=== PATIENT | male | born 1945 | race Hispanic/Latino ===

== ENCOUNTER → 2017-03-18 | Outpatient (CLI) | payer MEDICARE, OTHER ==
[~2017-03-18] MED LIST: ATORVASTATIN CA20 MG PO; DEXAMETHASONE4 MG PO; ESIDRIX25 MG PO; FAMOTIDINE20 MG PO; FENTANYL1 EAC1; GABAPENTIN300 MG PO; HYDROMORPHONE HC4 MG PO; LACTULOSE20 GM/30 M PO; LISINOPRIL10 MG PO; MUCINEX DM ER1 EACH PO; NICODERM CQ1 EAC2 TOP; NIFEDIPINE ER30 M1 PO; PROAIR HFA INH8.5 GM; SIMVASTATIN20 MG PO; VENTOLIN HFA18 GM IH; ZOFRAN ODT4 MG PO
--- NOTE | 2017-03-18 18:54 | Diagnostic Imaging Report ---
PROCEDURE:CT CHEST WITHOUT CONTRAST COMPARISON:Chest 01/02/17. INDICATIONS:LUNG CANCER, SHORTNESS OF BREATH TECHNIQUE: Axial CT images of the chest were obtained from the lung apices through the adrenal glands. Coronal and sagittal reformations were made available for review. No intravenous contrast was administered. RADIATION DOSE: Total DLP: 490.5 mGy*cm Estimated effective dose: (DLP x 0.014 x size factor) mSv FINDINGS: Lungs: Right lung: New patchy groundglass airspace opacities have developed. * Upper lobe: 3 areas of airspace disease have developed measuring up to 2 cm. * Patchy air space opacity has developed in the lateral segment of the middle lobe, inferior aspect. * Patchy groundglass opacities have developed in the posterior basal segment of the lower lobe in what appears to be a "tree in bud pattern". 7 mm nodule in the middle lobe is stable. Nodules in the posterior lower lobe (images 63 and 65 measuring up to 8 mm and are stable. Pleural based nodule the middle lobe (image 84) measures 4 mm and is stable. Tiny nodules along the major fissure (image 64) are stable. There is mild bronchial wall thickening in the areas of groundglass attenuation in the lower lobe. Left lung: The primary tumor is in the upper lobe, posterior aspect, with occlusion of the supplying bronchus. Two areas of cavitation or ectatic bronchi are present measuring up to 12 mm. There is an increasing atelectasis surrounding the tumor as well as diffuse groundglass attenuation along the anterior aspect, similar to that found in the right lung. New patchy areas of groundglass airspace opacities have developed right lower lobe. These measure up to 3.5 x 4.0 cm. Some have a "tree in bud configuration". Solid nodule has developed in the lower lobe measuring 9 mm (image 76). There is bronchial wall thickening in the lower lobe. Portions of the anterior basal segment bronchus are chronically narrowed due to tumor. Pleura:No pneumothorax. Posterior layering left pleural effusion measures 18 mm and is smaller. Eventration of the left diaphragm has developed. Airways: The trachea and right and left bronchi are patent. The left upper lobe bronchus is circumferentially narrowed, similar to previous exam. The bronchus supplying the segment of the left upper lobe affected by tumor remains occluded. There is mild narrowing of the proximal left lower lobe bronchus by tumor. This is also stable. Lymph nodes: No enlarged axillary or subclavicular lymph nodes. Metastatic lymphadenopathy is re-demonstrated with prevascular lymph nodes measuring up to 2.4 x 2.4 cm. Right paratracheal lymph nodes measure up to 2.3 x 2.2 cm (previously, 2.0 x 1.0 cm). Subcarinal lymph node measures 2.2 x 2.4 cm (previously, 2.0 x 2.5 cm). Heart \\T\\ Mediastinum:A pericardial effusion measures 8 mm. Coronary artery calcifications are present. The esophagus is collapsed. MediPort catheter terminates in the SVC. Upper abdomen:Splenic subcapsular fluid collection measures 18.6 x 11.6 by approximately 13 cm. It is incompletely imaged. Low attenuating mass the spleen measures 7.4 x 8.6 cm corresponds to tumor. There is mass effect on the stomach as a result. The visualized portions of the liver and adrenal glands demonstrate no evidence of mass. The upper pole the right kidney is unremarkable Musculoskeletal:There are no lytic or blastic lesions CONCLUSION: 1. New multifocal groundglass opacities in each lung, including surrounding the left upper lobe tumor; some of these opacities have the appearance of an infectious/inflammatory process. However, these could also represent hemorrhage, response to chemotherapy, or pulmonary infarcts. New deposits of metastases cannot be excluded. The solid pulmonary nodules in the right lung appear stable. A new solid nodule in the left lower lobe could be a new metastatic lesion. 2. Progression of mediastinal lymphadenopathy. This could be secondary to infection or tumor. 3. Large subcapsular splenic fluid collection consistent with remote hemorrhage. The size is underestimated due to CT technique. This causes mass effect on the stomach and eventration of the left diaphragm. Metastatic mass in the spleen is similar in appearance. Findings discussed with Dr. Baird at the time the study was performed. Dictated by: Lorena Carbajal M.D. on 03/18/2017 at 19:03 Electronically approved by: Lorena Carbajal M.D. on 03/18/2017 at 19:03
== END ==
LOC: CT 17:29
PROVIDERS: ATTEND Internal Medicine Cardiovascular Disease
DX: C34.90 Malignant neoplasm of unspecified part of unspecified bronchus or lung (principal); R06.00 Dyspnea, unspecified; G47.19 Other hypersomnia; F32.9 Major depressive disorder, single episode, unspecified; F17.200 Nicotine dependence, unspecified, uncomplicated
CPT/HCPCS: 71250

== ENCOUNTER 2017-03-19 09:24 | Inpatient (IN) | payer MEDICARE, OTHER ==
[~2017-03-19] VITALS: Ht 180.3 cm; Wt 90.0 kg
[~2017-03-19 09:24] MED LIST changes: -DEXAMETHASONE4 MG PO; -FENTANYL1 EAC1; -GABAPENTIN300 MG PO; -HYDROMORPHONE HC4 MG PO; -LACTULOSE20 GM/30 M PO; -PROAIR HFA INH8.5 GM; -ZOFRAN ODT4 MG PO
[2017-03-19] MEDS ORDERED: SODIUM CHLORIDE 0.9% 1000ML 1,000 ML IV STA (09:43)
[2017-03-19] MEDS ORDERED: ZOFRAN ODT4 MG PO (09:50)
[2017-03-19] MEDS ORDERED: FENTANYL1 EAC1 (09:50)
[2017-03-19] MEDS ORDERED: GABAPENTIN300 MG PO (09:50)
[2017-03-19] MEDS ORDERED: HYDROMORPHONE HC4 MG PO (09:50)
[2017-03-19] MEDS ORDERED: PROAIR HFA INH8.5 GM (09:50)
[2017-03-19] MEDS ORDERED: DEXAMETHASONE4 MG PO (09:50)
[2017-03-19] MEDS ORDERED: LACTULOSE20 GM/30 M PO (09:50)
[2017-03-19] MEDS ORDERED: IBUPROFEN 600 MG TAB PO STA (09:54)
[2017-03-19 10:12] LABS: BASOPHILS % 1.8 % (0.0-1.0); HEMATOCRIT 32.5 % (38.2-49.6); HEMOGLOBIN 10.8 g/dL (14.0-18.0); LYMPHOCYTES # (AUTO) 0.2 (1.0-3.2); LYMPHOCYTES % 21.4 % (18.0-39.1); MEAN CORPUSCULAR HEMOGLOBIN 28.6 pg (28-32); MEAN CORPUSCULAR HGB CONC 33.2 g/dL (31-35); MONOCYTES # (AUTO) 0.1 (0.2-0.8); MONOCYTES % 4.5 % (4.4-11.3); NEUTROPHILS # (AUTO) 0.8 (2.1-6.9); NEUTROPHILS % 71.4 % (38.7-80.0); PLATELET COUNT 75 x10e3/uL (140-360); RED BLOOD COUNT 3.78 x10e6/uL (4.3-5.7); RED CELL DISTRIBUTION WIDTH 20.8 % (11.7-14.4)
[2017-03-19] MEDS ORDERED: HYDROMORPHONE 1MG/1ML INJ IV STA (10:12)
[2017-03-19] MEDS ORDERED: ONDANSETRON HCL INJ 2 MG/ML VIAL IV STA (10:12)
--- NOTE | 2017-03-19 10:22 | Diagnostic Imaging Report ---
Portable chest x-ray CPT code 10918 INDICATION: Lung cancer, mid back pain, cough COMPARISON: CT chest performed 03/18/2017 is not available for comparison. Comparison is made to a CT chest performed 01/02/2017 FINDINGS: Frontal view of the chest obtained at 0752 hours. The cardiac silhouette is partially obscured due to large left upper lobe mass. There is increasing consolidation surrounding the tumor compared to previous exam. MediPort catheter terminates in the SVC. The groundglass airspace opacities identified in the right lung on the most recent CT are not visualized by x-ray The pulmonary vascular markings in the aerated lung are normal. The left diaphragm is obscured. The right costophrenic angle is sharp. No pneumothorax. The osseous structures are intact and normal in morphology. IMPRESSION: 1. Multifocal airspace opacities identified in the right lung on CT of the chest performed 03/18/2017 are not visible by x-ray. 2. Worsening consolidation surrounding the left upper lobe tumor. This could be due to atelectasis or pneumonia in the appropriate clinical setting. Signed by: Dr. Lorena Carbajal MD on 03/19/2017 10:18 AM
[2017-03-19 10:33] LABS: PROTHROMBIN TIME 13.7 seconds (11.9-14.5)
[2017-03-19 10:34] LABS: PARTIAL THROMBOPLASTIN TIME 33.4 seconds (23.8-35.5)
[2017-03-19 10:43] LABS: ALANINE AMINOTRANSFERASE 28 IU/L (0-55); ALBUMIN 1.8 g/dL (3.5-5.0); ALBUMIN/GLOBULIN RATIO 0.4 (0.8-2.0); ALKALINE PHOSPHATASE 110 IU/L (40-150); ANION GAP 16.7 mmol/L (8-16); BLOOD UREA NITROGEN 23 mg/dL (7-26); BUN/CREATININE RATIO 30 (6-25); CALCIUM 11.6 mg/dL (8.4-10.2); CARBON DIOXIDE 21 mmol/L (22-29); CHLORIDE 97 mmol/L (98-107); CREATININE, SERUM 0.76 mg/dL (0.72-1.25); EST GLOMERULAR FILTRATION RATE > 60 ML/MIN (60-); GLUCOSE 163 mg/dL (74-118); POTASSIUM 4.7 mmol/L (3.5-5.1); SODIUM 130 mmol/L (136-145)
[2017-03-19] MEDS ORDERED: HYDROMORPHONE 2MG/ML INJ IV ONE (11:00)
[2017-03-19] MEDS ORDERED: SODIUM CHLORIDE 0.9% 1000ML 1,000 ML IV SCH (11:38)
[2017-03-19] MEDS ORDERED: VANCOMYCIN HCL 1GM/NS 250 ML BAG IV SCH (11:45)
[2017-03-19] MEDS: VANCOMYCIN 1GM/NS 250 ML 250 ML IV SCH (12:26)
[2017-03-19] MEDS: IPRATROPIUM BROMIDE 0.02% 2.5 ML NEB NEB SCH ×2 (13:50→19:15)
[2017-03-19 13:57] LABS: BAND NEUTROPHILS % (MANUAL) 12 %; LYMPHOCYTES % (MANUAL) 32 % (19-48); METAMYELOCYTES % (MANUAL) 18 % (0-0); MONOCYTES % (MANUAL) 18 % (3.4-9.0); MYELOCYTES % (MANUAL) 8 % (0-0); NEUTROPHILS % (MANUAL) 10 % (40-74); NUCLEATED RED BLOOD CELLS 4; PROMYELOCYTES % (MANUAL) 2 % (0-0)
[2017-03-19 13:59] LABS: PLATELET MORPHOLOGY COMMENT NORMAL
[2017-03-19 14:00] LABS: PLATELET ESTIMATE MODERATELY DECREASED; RBC MORPHOLOGY COMMENT ABNORMAL
[2017-03-19 14:02] LABS: POIKILOCYTOSIS MODERATE
[2017-03-19 14:08] LABS: ANISOCYTOSIS MODERATE
[2017-03-19 14:09] LABS: ACANTHOCYTES FEW; BURR CELLS SLIGHT
[2017-03-19 14:11] LABS: TEAR DROP CELLS FEW
[2017-03-19] MEDS ORDERED: ALBUTEROL SULF 0.083% NEB SOLN 3 ML NEB NEB SCH (15:00)
[2017-03-19] MEDS: LEVOFLOXACIN 750MG/D5W 150ML 150 ML IV SCH (16:00)
[2017-03-19] MEDS: SODIUM CHLORIDE 0.9% 1000ML 1,000 ML IV SCH (16:00)
[2017-03-19] MEDS: FENTANYL 50 MCG/HR PATCH TD SCH (16:00)
[2017-03-19 16:03] VITALS: BP 99/60
[2017-03-19 16:09] VITALS: BP 102/60
[2017-03-19] MEDS: LACTULOSE SYRUP 20 GM/30 ML UDC PO SCH (18:00)
[2017-03-19 18:52] VITALS: BP 102/60
[2017-03-19] MEDS: ALBUTEROL/IPRATROPIUM 3 ML NEB NEB SCH ×2 (19:15→23:15)
[2017-03-19 20:34] VITALS: BP 104/63
[2017-03-19 21:00] VITALS: BP 104/63
[2017-03-19] MEDS: SIMVASTATIN 20 MG TAB PO SCH (21:32)
[2017-03-19] MEDS: ONDANSETRON HCL 4 MG ORAL DISINTEGRATING TAB PO SCH (21:32)
[2017-03-19] MEDS: DEXAMETHASONE 4 MG TAB PO SCH (21:33)
[2017-03-19] MEDS: HYDROCODONE/APAP 10MG-325MG TAB PO PRN (21:52)
[2017-03-20 00:40] VITALS: BP 116/63
[2017-03-20] MEDS: IPRATROPIUM BROMIDE 0.02% 2.5 ML NEB NEB SCH ×4 (01:10→19:00)
[2017-03-20] MEDS: HYDROCODONE/APAP 10MG-325MG TAB PO PRN ×3 (03:04→20:21)
[2017-03-20] MEDS: SODIUM CHLORIDE 0.9% 1000ML 1,000 ML IV SCH ×2 (03:04→16:23)
[2017-03-20] MEDS: ALBUTEROL/IPRATROPIUM 3 ML NEB NEB SCH ×5 (03:10→20:00)
[2017-03-20 03:13] LABS: CLARITY,URINE CLEAR (CLEAR); KETONES,URINE NEGATIVE (NEGATIVE); LEUKOCYTE ESTERASE ,URINE NEGATIVE (NEGATIVE); NITRITE,URINE NEGATIVE (NEGATIVE); URINE UROBILINOGEN 4 mg/dL (0.2 - 1)
[2017-03-20 03:22] LABS: BILIRUBIN,URINE 1+ (NEGATIVE); COLOR,URINE ORANGE (YELLOW); PROTEIN,URINE DIPSTICK 1+ (NEGATIVE)
[2017-03-20 03:33] LABS: BACTERIA,URINE MODERATE /HPF; EPITHELIAL CELLS,URINE FEW /LPF; MUCUS,URINE MODERATE (RARE)
[2017-03-20 05:31] VITALS: BP 120/64
--- NOTE | 2017-03-20 05:49 | History and Physical ---
PRIMARY ONCOLOGIST: Dr. Kowalski. is a pleasant 71-year-old gentleman with lung cancer. Patient under recent assessment and came to the hospital and was asked to be placed under my care here. Patient with squamous cell, poorly differentiated carcinoma diagnosed in December 2016. Patient had bronchoscopy at that time showing multilobar involvement. Subsequent MRI brain was reported to be normal, although I did not see the report. PET CT reportedly showed lymph node, spleen, and lung involvement, although I did not see the report. Patient has been having chemotherapy for 3 sessions now. Patient's last chemotherapy was 1 week ago. Patient has been having increasing pain and increasing lethargy and sleepiness. Patient is on fentanyl patch 50 mcg per hour. He stopped using Dilaudid as it was not being used with good efficacy with the 4-mg dosing that he was on. Patient furthermore cites some depression as well. Patient, however, was having increasing shortness of breath and pain. He had CT chest done which shows small patchy infiltrates bilaterally and slight progression of tumor around some of the larger airways, although no high-grade obstruction at this time per CAT scan. He also had 101.4 temperature in the emergency room. He was admitted to my service at request. PAST MEDICAL HISTORY: Hypertension; hyperlipidemia; lung cancer, squamous cell, poorly differentiated stage 4. MEDICATIONS: List reviewed per the chart record. ALLERGIES: CEFTRIAXONE. SOCIAL HISTORY: Former smoker but recently quit couple of months ago. No alcohol, no drugs. FAMILY HISTORY: Noncontributory to this. REVIEW OF SYSTEMS GENERAL: There is mild weight loss, although he will gain it back and is about equal recently. HEENT: No thyroid disease known. IMMUNOLOGY: No lupus. PULMONARY: There is subjective response to bronchodilators. CARDIAC: No heart attacks. GI: Mild constipation. : No blood in urine. MUSCULOSKELETAL: There is some mild arthritis. NEUROLOGIC: No seizures. DERMATOLOGIC: No rashes. OBJECTIVE VITALS: Currently went back to afebrile. Vital signs reviewed per the chart record. GENERAL: No distress. Calm, but looks and poor. HEENT: Normocephalic and atraumatic. NECK: Supple. Throat midline. LUNGS: Bilateral air entry. Few rhonchi. CARDIOVASCULAR: S1 and S2. No murmurs, rubs, or gallops. ABDOMEN: Soft and nontender. EXTREMITIES: No clubbing. No cyanosis. There is trace edema. INTEGUMENT: No rash or purpura. LABS: White count 11.1, hematocrit 32, and platelets 75,000. Potassium 4.7, creatinine 0.76, calcium 11.6, and albumin 1.8. IMPRESSIONS 1. Febrile syndrome, treated as sepsis. 2. Leukopenia. 3. Thrombocytopenia. 4. Recent chemotherapy, last 1 week ago. 5. Abnormal chest infiltrates, treated as pneumonia. 6. Hypercalcemia. 7. Hypoalbuminemia, severe protein-calorie malnutrition. 8. Squamous cell lung cancer. 9. Splenic enlargement, semi-rapid. 10. Hypertension. 11. Dyslipidemia. PLAN 1. Continue loading with antibiotics. Follow up counts closely. 2. Sputum culture requested. 3. Patient will get repeat blood work in the morning. 4. Oncology will be consulted for continuation of care. 5. surgeon was consulted and he awaits word from oncologist on need to treat the spleen if the spleen is felt to be the source of the pain. 6. We will try to mobilize the patient or else we will consider adding DVT prophylaxis if his counts are shown to be stable. 7. We will follow along closely. Thank you, Dr. Kowalski, for the opportunity to help participate in care of . Do not hesitate to contact me if I could help in any way. Job#: [id number]
--- NOTE | 2017-03-20 06:33 | Consultation ---
DATE OF CONSULTATION: March 19, 2017 REFERRING PHYSICIAN: Dr. Joel Baird. HPI: Patient is a 71-year-old male who is admitted to the hospital with complaints of abdominal pain and pneumonia. He has carcinoma of the lung, is receiving chemotherapy. He has had 3 courses of chemotherapy. He was noted on CT of the abdomen to have a very enlarged spleen which has increased in size from previous imaging studies. Patient has mild left upper quadrant abdominal pain and poor appetite, but no nausea or vomiting. The spleen is seen to compress the stomach on imaging studies. PAST MEDICAL HISTORY: Significant for carcinoma of the lung, hypertension, hypercholesterolemia, and chronic obstructive pulmonary disease. ALLERGIES: CEFTRIAXONE. FAMILY HISTORY: Noncontributory. SOCIAL HISTORY: The patient smokes cigarettes 1 pack per day, does not drink alcohol. REVIEW OF SYSTEMS: As stated above. Denies any fever. Denies nausea or vomiting. PHYSICAL EXAMINATION GENERAL: The patient is awake and alert. VITAL SIGNS: Normal. HEENT: No scleral icterus. NECK: No masses. LUNGS: Equal breath sounds are clear. CARDIAC: Regular rate and rhythm. ABDOMEN: Soft. There is fullness in the left upper quadrant. Spleen is not definitely palpable, however. There are no signs of peritonitis. EXTREMITIES: No edema. LAB TESTS: The white blood cell count is 1.12, hemoglobin 10.8, hematocrit 32.5, and platelet count 75,000. Chemistries are essentially normal. ASSESSMENT: A 71-year-old male with enlarged spleen that appears mostly cystic on imaging: This may be due to degeneration of a lesion seen the spleen on previous computerized tomography scan. It appears to be compressing the stomach on computerized tomography, although the patient does not seem to be symptomatic from it. I think oncology is to see the patient. I will await their opinion, but right now, no surgical intervention is warranted. Thank you for asking me to see José Miguel. Job#: [id number] SOHEILA
[2017-03-20] MEDS: DEXAMETHASONE 4 MG TAB PO SCH ×3 (06:39→20:21)
[2017-03-20 07:48] VITALS: BP 134/73
[2017-03-20 08:23] LABS: BASOPHILS % 2.7 % (0.0-1.0); HEMATOCRIT 25.2 % (38.2-49.6); HEMOGLOBIN 8.5 g/dL (14.0-18.0); LYMPHOCYTES # (AUTO) 0.1 (1.0-3.2); MEAN CORPUSCULAR HEMOGLOBIN 28.7 pg (28-32); MEAN CORPUSCULAR HGB CONC 33.7 g/dL (31-35); MEAN CORPUSCULAR VOLUME 85.1 fL (81-99); NEUTROPHILS # (AUTO) 0.6 (2.1-6.9); NEUTROPHILS % 77.3 % (38.7-80.0); RED BLOOD COUNT 2.96 x10e6/uL (4.3-5.7); RED CELL DISTRIBUTION WIDTH 20.2 % (11.7-14.4)
[2017-03-20 08:36] LABS: PLATELET COUNT 40 x10e3/uL (140-360)
[2017-03-20 08:44] LABS: ALANINE AMINOTRANSFERASE 25 IU/L (0-55); ALBUMIN 1.4 g/dL (3.5-5.0); ALBUMIN/GLOBULIN RATIO 0.3 (0.8-2.0); ALKALINE PHOSPHATASE 78 IU/L (40-150); ANION GAP 10.2 mmol/L (8-16); BLOOD UREA NITROGEN 22 mg/dL (7-26); BUN/CREATININE RATIO 39 (6-25); CALCIUM 10.8 mg/dL (8.4-10.2); CARBON DIOXIDE 24 mmol/L (22-29); CHLORIDE 99 mmol/L (98-107); CREATININE, SERUM 0.57 mg/dL (0.72-1.25); EST GLOMERULAR FILTRATION RATE > 60 ML/MIN (60-); GLUCOSE 90 mg/dL (74-118); MAGNESIUM 1.2 MG/DL (1.3-2.1); PHOSPHORUS 2.9 MG/DL (2.3-4.7); POTASSIUM 4.2 mmol/L (3.5-5.1); SODIUM 129 mmol/L (136-145)
[2017-03-20] MEDS: ONDANSETRON HCL 4 MG ORAL DISINTEGRATING TAB PO SCH ×3 (09:00→20:21)
[2017-03-20] MEDS: LACTULOSE SYRUP 20 GM/30 ML UDC PO SCH (09:00)
[2017-03-20] MEDS: LISINOPRIL 20 MG TAB PO SCH (09:00)
[2017-03-20] MEDS ORDERED: LACTULOSE SYRUP 20 GM/30 ML UDC PO SCH (09:00)
[2017-03-20] MEDS: GABAPENTIN 300 MG CAP PO SCH (09:00)
[2017-03-20 11:20] LABS: BAND NEUTROPHILS % (MANUAL) 48 %; EOSINOPHILS % (MANUAL) 3 % (0-7); LYMPHOCYTES % (MANUAL) 20 % (19-48); METAMYELOCYTES % (MANUAL) 10 % (0-0); MONOCYTES % (MANUAL) 12 % (3.4-9.0); MYELOCYTES % (MANUAL) 6 % (0-0); NEUTROPHILS % (MANUAL) 1 % (40-74); RBC MORPHOLOGY COMMENT ABNORMAL
[2017-03-20 11:21] LABS: BURR CELLS MODERATE; HYPOCHROMASIA SLIGHT; POIKILOCYTOSIS MODERATE; SCHISTOCYTES FEW
[2017-03-20 11:22] LABS: ELLIPTOCYTE, RBC SLIGHT; PLATELET ESTIMATE MARKEDLY DECREASED; PLATELET MORPHOLOGY COMMENT NORMAL
[2017-03-20 11:37] VITALS: BP 142/77
[2017-03-20] MEDS: NYSTATIN SUSPENSION 5 ML UDC PO SCH ×2 (12:26→16:23)
[2017-03-20] MEDS: VANCOMYCIN 1GM/NS 250 ML 250 ML IV SCH (12:26)
[2017-03-20 15:52] VITALS: BP 158/87
[2017-03-20] MEDS: LEVOFLOXACIN 750MG/D5W 150ML 150 ML IV SCH (16:23)
[2017-03-20 20:19] VITALS: BP 125/72
[2017-03-20] MEDS: SIMVASTATIN 20 MG TAB PO SCH (20:21)
[2017-03-20] MEDS: MAALOX/LIDOCAINE/BENADRYL 120 ML BTL PO SCH (20:21)
[2017-03-20] MEDS: HYDROMORPHONE 2MG/ML INJ IV PRN (20:48)
[2017-03-21] MEDS: IPRATROPIUM BROMIDE 0.02% 2.5 ML NEB NEB SCH ×4 (01:00→19:28)
[2017-03-21 01:31] VITALS: BP 145/79
[2017-03-21 04:00] VITALS: BP 120/63
[2017-03-21] MEDS: ALBUTEROL/IPRATROPIUM 3 ML NEB NEB SCH ×7 (04:00→23:45)
[2017-03-21] MEDS: DEXAMETHASONE 4 MG TAB PO SCH ×3 (06:37→21:29)
[2017-03-21] MEDS: SODIUM CHLORIDE 0.9% 1000ML 1,000 ML IV SCH ×2 (06:37→17:11)
[2017-03-21] MEDS: NYSTATIN SUSPENSION 5 ML UDC PO SCH ×4 (06:37→17:12)
[2017-03-21] MEDS: HYDROMORPHONE 2MG/ML INJ IV PRN ×3 (06:45→21:29)
[2017-03-21 08:00] VITALS: BP 155/81
[2017-03-21 09:04] LABS: BASOPHILS % 0.9 % (0.0-1.0); HEMATOCRIT 27.2 % (38.2-49.6); HEMOGLOBIN 9.1 g/dL (14.0-18.0); LYMPHOCYTES # (AUTO) 0.1 (1.0-3.2); LYMPHOCYTES % 5.1 % (18.0-39.1); MEAN CORPUSCULAR HEMOGLOBIN 28.4 pg (28-32); MEAN CORPUSCULAR HGB CONC 33.5 g/dL (31-35); MONOCYTES # (AUTO) 0.2 (0.2-0.8); MONOCYTES % 7.5 % (4.4-11.3); NEUTROPHILS # (AUTO) 1.8 (2.1-6.9); NEUTROPHILS % 85.6 % (38.7-80.0); RED CELL DISTRIBUTION WIDTH 21.1 % (11.7-14.4)
[2017-03-21 09:08] LABS: PLATELET COUNT 36 x10e3/uL (140-360)
--- NOTE | 2017-03-21 09:57 | Consultation ---
DATE OF CONSULTATION: March 21, 2017 ATTENDING DOCTOR: Dr. Baird Thank you, Dr. Baird for this consultation. HISTORY: This is a 71-year-old gentleman with a past medical history including poorly-differentiated squamous cell carcinoma of lung, stage 4 disease, diagnosed December 2016, currently on palliative chemo, received 3 cycles, waiting for the fourth cycle, admitted through emergency with worsening confusion, shortness of breath, worsening abdominal pain. At the time of admission, patient had fever, neutropenia, and anemia. He was admitted to hospital for further management. He had CAT scan that showed small patchy infiltrates bilaterally. Patient surgeon the possibility of worsening splenic lesions. Patient is currently on Neupogen. Clinical condition is improving. He is also started on levofloxacin, vancomycin. No worsening event noted. Surgeon is considering possibility of splenectomy. PAST MEDICAL HISTORY: Hypertension, hyperlipidemia, stage 4 lung cancer. ALLERGIES: NURSING LIST. MEDICATIONS: List reviewed. SOCIAL HISTORY: Patient is former smoker, quit couple of months ago. No other habits. REVIEW OF SYSTEMS: Twelve-point reviewed as per the HPI. FAMILY HISTORY: Reviewed and noncontributory. PHYSICAL EXAMINATION: GENERAL: Alert, awake, communicative. HEENT: Normocephalic, atraumatic. Sclerae pink. Conjunctivae clear. NECK: Supple. CHEST: Decreased breath sounds at the bases. CARDIOVASCULAR: Regular rate and rhythm. ABDOMEN: Soft. EXTREMITIES: No edema. LABS AND IMAGING: Reviewed. ASSESSMENT AND PLAN: Patient with history of multiple medical conditions. I am currently following for squamous cell carcinoma, stage 4 disease. Patient also has hypercalcemia and paraneoplastic syndrome. Patient currently on hydration, pain medication, and antibiotic treatment. RECOMMENDATION: 1. Continue Neupogen for neutropenia, which is likely chemo-induced neutropenia. 2. Anemia, current hemoglobin is stable. Will check CBC today. Will transfuse if hemoglobin drops below 8. 3. Dysphagia. Patient currently on nystatin and magic mouthwash. Speech evaluation is pending. Continue pureed diet. 4. Worsening abdominal pain with cystic splenic mass. Discussed in detail with surgeon. Patient will benefit with splenectomy. I also discussed with family. They agreed with the plan of care. 5. Pneumonia. Patient currently on vancomycin and Levaquin. Continue current care. At this point, will continue , hold surgery until neutropenia resolves. Will try to keep hemoglobin close to 10s before surgery. Will monitor patient very closely. Thank you, Dr. Baird for this consultation. Job#: [id number]
[2017-03-21] MEDS: LACTULOSE SYRUP 20 GM/30 ML UDC PO SCH (10:37)
[2017-03-21] MEDS: FILGRASTIM 300 MCG/ML VIAL SC SCH (10:37)
[2017-03-21] MEDS: GABAPENTIN 300 MG CAP PO SCH (10:37)
[2017-03-21] MEDS: ONDANSETRON HCL 4 MG ORAL DISINTEGRATING TAB PO SCH ×3 (10:37→21:29)
[2017-03-21] MEDS: MAALOX/LIDOCAINE/BENADRYL 120 ML BTL PO SCH ×2 (10:37→21:29)
[2017-03-21] MEDS: LISINOPRIL 20 MG TAB PO SCH (10:37)
[2017-03-21 12:00] VITALS: BP 141/88
[2017-03-21] MEDS: FENTANYL 50 MCG/HR PATCH TD SCH (14:15)
[2017-03-21] MEDS: VANCOMYCIN 1GM/NS 250 ML 250 ML IV SCH (14:40)
[2017-03-21 16:00] VITALS: BP 147/79
--- NOTE | 2017-03-21 16:32 | Progress Note ---
DATE: March 21, 2017 PULMONARY MEDICINE PROGRESS NOTE SUBJECTIVE: was seen and examined at bedside. Oxygen saturation 94%. He is on 2 liters per minute nasal cannula. Patient voiding. No bowel movement yet. Patient felt to be possibly choking on exam. No high-level respiratory distress, but there is a feeling of airways being tight. Patient still with low white blood cell count and platelets as well. REVIEW OF SYSTEMS: No headaches, no rash. OBJECTIVE VITAL SIGNS: Afebrile. Vital signs noted per electronic record. GENERALLY: No acute distress, alert and calm, chronic and weak. HEENT: Normocephalic, atraumatic. NECK: Supple. Throat midline. LUNGS: Bilateral air entry. A few wheezes, especially on the left side. CARDIOVASCULAR: S1 and S2. No murmurs, rubs or gallops. ABDOMINAL: Soft, nontender. EXTREMITIES: No clubbing, no cyanosis. There is trace edema. INTEGUMENT: No rash. No purpura. LABS: White count 2.1, hematocrit 27, platelets 36. Sodium 129, bicarbonate 24, BUN 22, creatinine 0.6. Calcium 10.8, magnesium 1.2. Albumin 1.4. Urinalysis with 6-10 white blood cells per high-power field. IMPRESSION AND PLAN 1. Chemotherapy-induced neutropenia. 2. Chemotherapy-induced thrombocytopenia, worsening. 3. Enlarging cystic splenic mass. 4. Dysphagia. 5. Pneumonia, bilateral. 6. Stage IV squamous cell carcinoma of lung. 7. Possible proximal airways obstruction left lung. At this time, will continue current treatment. We will likely propose bronchoscopy but will need assurance that platelets are not in critical levels. This will be to review the airways and ensure there is no critical encroachment on the larger airways such as the left main or the left lower airways. Patient will have followup of his blood counts. He is planned for splenectomy when the platelets and the white count are showing that they are going to improve and minimize bleeding risk after surgery. Will follow along closely. Speech therapy evaluation appreciated and patient likely for MBS. Will follow along closely. Job#: [id number] EV
[2017-03-21] MEDS: LEVOFLOXACIN 750MG/D5W 150ML 150 ML IV SCH (17:11)
[2017-03-21] MEDS: SIMVASTATIN 20 MG TAB PO SCH (21:29)
[2017-03-22] MEDS: IPRATROPIUM BROMIDE 0.02% 2.5 ML NEB NEB SCH ×4 (00:45→19:00)
[2017-03-22] MEDS: ALBUTEROL/IPRATROPIUM 3 ML NEB NEB SCH ×6 (03:20→23:00)
[2017-03-22] MEDS: HYDROMORPHONE 2MG/ML INJ IV PRN ×2 (03:30→20:46)
[2017-03-22] MEDS: DEXAMETHASONE 4 MG TAB PO SCH ×3 (06:00→20:45)
[2017-03-22] MEDS: NYSTATIN SUSPENSION 5 ML UDC PO SCH ×5 (06:41→23:31)
[2017-03-22] MEDS: SODIUM CHLORIDE 0.9% 1000ML 1,000 ML IV SCH ×2 (06:41→19:00)
[2017-03-22 07:33] LABS: ANION GAP 14.4 mmol/L (8-16); BLOOD UREA NITROGEN 24 mg/dL (7-26); BUN/CREATININE RATIO 40 (6-25); CALCIUM 11.6 mg/dL (8.4-10.2); CARBON DIOXIDE 24 mmol/L (22-29); CHLORIDE 100 mmol/L (98-107); EST GLOMERULAR FILTRATION RATE > 60 ML/MIN (60-); GLUCOSE 137 mg/dL (74-118); MAGNESIUM 1.3 MG/DL (1.3-2.1); POTASSIUM 4.4 mmol/L (3.5-5.1); SODIUM 134 mmol/L (136-145)
[2017-03-22 08:00] VITALS: BP 164/104
[2017-03-22 09:21] LABS: BASOPHILS # (AUTO) 0.1 (0.0-0.1); BASOPHILS % 2.5 % (0.0-1.0); HEMATOCRIT 27.4 % (38.2-49.6); HEMOGLOBIN 9.3 g/dL (14.0-18.0); LYMPHOCYTES # (AUTO) 0.2 (1.0-3.2); LYMPHOCYTES % 6.2 % (18.0-39.1); MEAN CORPUSCULAR HEMOGLOBIN 28.8 pg (28-32); MEAN CORPUSCULAR HGB CONC 33.9 g/dL (31-35); MEAN CORPUSCULAR VOLUME 84.8 fL (81-99); MONOCYTES # (AUTO) 0.1 (0.2-0.8); MONOCYTES % 3.4 % (4.4-11.3); NEUTROPHILS # (AUTO) 2.8 (2.1-6.9); NEUTROPHILS % 87.6 % (38.7-80.0); RED BLOOD COUNT 3.23 x10e6/uL (4.3-5.7); RED CELL DISTRIBUTION WIDTH 21.1 % (11.7-14.4)
[2017-03-22 09:32] LABS: PLATELET COUNT 35 x10e3/uL (140-360)
--- NOTE | 2017-03-22 09:59 | Progress Note ---
DATE: March 22, 2017 Patient is seen and examined today. Patient appeared comfortable. Is still requiring pain medication around the clock. Denies any other symptoms. White cell counts are trending upwards. Platelet count is low, but no evidence of any bleeding noted. PHYSICAL EXAM GENERAL: Alert, awake and communicative. HEENT: Normocephalic and atraumatic. Sclerae pink. Conjunctivae clear. NECK: Supple. CHEST: Clear to auscultation. CARDIOVASCULAR: Regular rate and rhythm. ABDOMEN: Soft. EXTREMITIES: No edema. LABS AND IMAGING: Reviewed. ASSESSMENT AND PLAN: Patient with a history of lung cancer, stage IV disease, and enlarged cystic splenic mass, chemo-induced pancytopenia, bilateral pneumonia. RECOMMENDATIONS: Continue Neupogen treatment. Will check CBC today. Further management as per white blood cell count. Platelet count low, but no evidence of any bleeding. Recommendation is close observation. Anemia. Current hemoglobin is stable. Recommendation is close observation. Pneumonia. Patient currently on antibiotic treatment. Enlarged cystic splenic mass. Patient currently following with surgery. Recommendation is surgical resection. Squamous cell carcinoma of lung. Outpatient chemo management. Will continue remaining care. Will follow the patient closely. Job#: [id number] RODRI
[2017-03-22 12:00] VITALS: BP 155/94
[2017-03-22] MEDS: DOXYCYCLINE 100MG/NS 100ML 100 ML IV SCH (12:30)
[2017-03-22] MEDS: GABAPENTIN 300 MG CAP PO SCH (12:33)
[2017-03-22] MEDS: LISINOPRIL 20 MG TAB PO SCH (12:34)
[2017-03-22] MEDS: MAALOX/LIDOCAINE/BENADRYL 120 ML BTL PO SCH ×2 (12:34→20:45)
[2017-03-22] MEDS: LACTULOSE SYRUP 20 GM/30 ML UDC PO SCH (12:34)
[2017-03-22] MEDS: ONDANSETRON HCL 4 MG ORAL DISINTEGRATING TAB PO SCH ×3 (12:34→20:45)
--- NOTE | 2017-03-22 12:37 | Diagnostic Imaging Report ---
PROCEDURE:X-RAY MODIFIED BARIUM SWALLOW COMPARISON:None. INDICATIONS:Not provided. DISCUSSION:Fluoroscopic examination was performed in conjunction with speech pathology, during swallowing of a variety of thin and thick liquid consistencies. CONCLUSION:Laryngeal penetration and tracheal aspiration were noted upon administration of multiple consistencies. Please see the report from speech pathology for complete details. Dictated by: Manan Walker M.D. on 03/22/2017 at 12:46 Electronically approved by: Manan Walker M.D. on 03/22/2017 at 12:46
[2017-03-22 13:35] LABS: ANISOCYTOSIS SLIGHT; MICROCYTOSIS R
[2017-03-22 13:36] LABS: PLATELET MORPHOLOGY COMMENT FEW GIANT; RBC MORPHOLOGY COMMENT ABNORMAL
[2017-03-22 13:37] LABS: ACANTHOCYTES FEW; ELLIPTOCYTE, RBC SLIGHT; HYPOCHROMASIA SLIGHT; PLATELET ESTIMATE MARKEDLY DECREASED
--- NOTE | 2017-03-22 14:07 | Progress Note ---
DATE: March 22, 2017 PULMONARY MEDICINE PROGRESS NOTE SUBJECTIVE: was seen and examined at bedside. He continues to have weakness. He is also having some pain. Blood cultures did come back that showed Streptococcus pneumoniae organism. The patient is able to start eating today. He did have a bowel movement. Has 94% oxygen saturation on 2 liters per minute by nasal cannula. REVIEW OF SYSTEMS: No headaches, no rash. OBJECTIVE VITAL SIGNS: Afebrile. Vital signs noted per electronic record. GENERAL: No acute distress, alert and calm. HEENT: Normocephalic, atraumatic. NECK: Supple. Throat midline. LUNGS: Bilateral air entry. A few rhonchi, rare wheezes mostly on the left side. CARDIOVASCULAR: S1 and S2. No murmurs, rubs or gallops. ABDOMINAL: Soft, nontender. EXTREMITIES: No clubbing, no cyanosis. There is trace edema. INTEGUMENT: No rash. No purpura. LABS: 3.2 white count, 27 hematocrit, 35 platelets. IMPRESSION 1. Streptococcal pneumonia bacteremia. 2. Pneumonia. 3. Immunosuppressed state. 4. Thrombocytopenia. 5. Lung cancer, status post recent chemotherapy. 6. Constipation, status post bowel movement now. 7. Possible proximal airway obstruction per CAT scan imaging and per wheezing on auscultation. Bronchoscopy tentatively tomorrow at 9:30 a.m. We will follow closely. Continue antibiotics for the streptococcal pneumonia. The patient will need continued therapy. Also, continue to try to control his pain. Possible splenectomy for therapy of the pain if he continues to improve on the blood counts. Job#: [id number]
[2017-03-22] MEDS: FILGRASTIM 300 MCG/ML VIAL SC SCH (15:00)
[2017-03-22] MEDS: FENTANYL 50 MCG/HR PATCH TD SCH (16:00)
[2017-03-22] MEDS: LEVOFLOXACIN 750MG/D5W 150ML 150 ML IV SCH (17:59)
[2017-03-22 20:06] VITALS: BP 168/85
[2017-03-22] MEDS: SIMVASTATIN 20 MG TAB PO SCH (20:45)
[2017-03-23] VITALS (60 sets, daily range): BP systolic 91–176; BP diastolic 62–106
[2017-03-23] MEDS: DOXYCYCLINE 100MG/NS 100ML 100 ML IV SCH ×2 (00:15→12:32)
[2017-03-23] MEDS: HYDROMORPHONE 2MG/ML INJ IV PRN ×2 (00:45→21:51)
[2017-03-23] MEDS: IPRATROPIUM BROMIDE 0.02% 2.5 ML NEB NEB SCH ×5 (01:00→19:32)
[2017-03-23] MEDS: ALBUTEROL/IPRATROPIUM 3 ML NEB NEB SCH ×8 (02:10→23:20)
[2017-03-23] MEDS: HALOPERIDOL LACTATE 5 MG/ML VIAL IV PRN ×2 (03:50→22:56)
[2017-03-23] MEDS ORDERED: DILTIAZEM HCL 5 MG/ML 5 ML VIAL IV STA (05:16)
[2017-03-23] MEDS ORDERED: AMIODARONE HCL 150MG 100 ML IV SCH (05:30)
[2017-03-23] MEDS ORDERED: AMIODARONE HCL 360MG 200 ML IV SCH ×2 (05:30→13:30)
[2017-03-23] MEDS ORDERED: AMIODARONE 900MG 500 ML IV ONE (05:54)
[2017-03-23] MEDS ORDERED: AMIODARONE HCL 100 ML IV ONE (05:54)
[2017-03-23 06:00] LABS: BASOPHILS % 0.2 % (0.0-1.0); HEMATOCRIT 28.6 % (38.2-49.6); HEMOGLOBIN 9.6 g/dL (14.0-18.0); LYMPHOCYTES # (AUTO) 0.4 (1.0-3.2); LYMPHOCYTES % 7.7 % (18.0-39.1); MEAN CORPUSCULAR HEMOGLOBIN 28.6 pg (28-32); MEAN CORPUSCULAR HGB CONC 33.6 g/dL (31-35); MEAN CORPUSCULAR VOLUME 85.1 fL (81-99); MONOCYTES # (AUTO) 0.3 (0.2-0.8); MONOCYTES % 6.4 % (4.4-11.3); NEUTROPHILS % 84.8 % (38.7-80.0); RED BLOOD COUNT 3.36 x10e6/uL (4.3-5.7); RED CELL DISTRIBUTION WIDTH 21.2 % (11.7-14.4)
[2017-03-23] MEDS: NYSTATIN SUSPENSION 5 ML UDC PO SCH ×3 (06:00→18:48)
[2017-03-23] MEDS: DEXAMETHASONE 4 MG TAB PO SCH ×3 (06:00→21:44)
[2017-03-23 06:05] LABS: PLATELET COUNT 36 x10e3/uL (140-360)
[2017-03-23] MEDS: AMIODARONE HCL 900 MG in DEXTROSE 5 % 500ML BOTTLE 500 ML IV SCH ×2 (06:15→22:27)
[2017-03-23] MEDS ORDERED: AMIODARONE HCL 150 MG in DEXTROSE 5% 100ML 100 ML IV SCH (06:45)
[2017-03-23] MEDS: SODIUM CHLORIDE 0.9% 1000ML 1,000 ML IV SCH ×2 (07:30→20:00)
[2017-03-23] MEDS: DILTIAZEM HCL 100 ML IV SCH (08:29)
[2017-03-23] MEDS: FILGRASTIM 300 MCG/ML VIAL SC SCH (09:00)
[2017-03-23 09:21] LABS: BAND NEUTROPHILS % (MANUAL) 9 %; BLAST CELLS % MANUAL 1; LYMPHOCYTES % (MANUAL) 7 % (19-48); MONOCYTES % (MANUAL) 14 % (3.4-9.0); NEUTROPHILS % (MANUAL) 67 % (40-74)
[2017-03-23 09:27] LABS: ANISOCYTOSIS SLIGHT; HYPOCHROMASIA SLIGHT; PLATELET ESTIMATE MARKEDLY DECREASED; RBC MORPHOLOGY COMMENT ABNORMAL
[2017-03-23 09:28] LABS: PLATELET MORPHOLOGY COMMENT FEW LARGE; TARGET CELLS FEW
[2017-03-23] MEDS: MAALOX/LIDOCAINE/BENADRYL 120 ML BTL PO SCH ×2 (09:41→21:32)
[2017-03-23] MEDS: GABAPENTIN 300 MG CAP PO SCH (09:41)
[2017-03-23] MEDS: LACTULOSE SYRUP 20 GM/30 ML UDC PO SCH (09:41)
[2017-03-23] MEDS: ONDANSETRON HCL 4 MG ORAL DISINTEGRATING TAB PO SCH ×3 (09:42→21:44)
[2017-03-23] MEDS: LISINOPRIL 20 MG TAB PO SCH (09:42)
[2017-03-23] MEDS: HYDROCODONE/APAP 10MG-325MG TAB PO PRN ×2 (09:42→14:12)
[2017-03-23] MEDS ORDERED: DIGOXIN INJ 0.25 MG/ML 2 ML AMP IV ONE (10:00)
[2017-03-23] MEDS ORDERED: MAGNESIUM SULFATE 2GM/50ML 50 ML IV ONE (10:30)
[2017-03-23] MEDS ORDERED: METOPROLOL TARTRATE INJ 1 MG/ML VIAL IV SCH (12:00)
--- NOTE | 2017-03-23 14:06 | Consultation ---
DATE OF CONSULTATION: March 23, 2017 CARDIOLOGY CONSULTATION REQUESTING PHYSICIAN: Dr. Baird. REASON FOR CONSULTATION: Atrial fibrillation with rapid ventricular response. HISTORY OF PRESENT ILLNESS: This is a 71-year-old man with history of metastatic squamous cell lung cancer stage IV, hypertension, and hyperlipidemia who presented with complaints of lethargy. He was found to have pneumonia with small patchy infiltrates bilaterally on CT chest as well as Streptococcus pneumoniae bacteremia in the setting of neutropenia, for which he was admitted for further care. He was scheduled for bronchoscopy this morning; however, prior to bronchoscopy, he developed tachycardia. The early hours of the morning, EKG was performed, which revealed atrial fibrillation. Cardiology is consulted for management. Overnight, the patient was started on amiodarone protocol in attempt at rhythm control. The patient's heart rate remained elevated, so he was started on Cardizem drip as well. He is currently awaiting ICU bed. The patient denies any history of cardiac disease. He does endorse chest pain, but he indicates this has been ongoing since his cancer diagnosis. He endorses palpitations with worsening shortness of breath and lightheadedness this morning. Otherwise, denies edema, orthopnea and PND. REVIEW OF SYSTEMS: Negative except as per HPI. PAST MEDICAL HISTORY 1. Squamous cell lung cancer, poorly differentiated stage IV. 2. Hypertension. 3. Hyperlipidemia. PAST SURGICAL HISTORY: Port placement. ALLERGIES: PLEASE SEE EMR. MEDICATIONS: Please see medication list. SOCIAL HISTORY: He previously smoked 2 packs a day, drinks alcohol occasionally, no illicit drugs. FAMILY HISTORY: Denies. PHYSICAL EXAM VITAL SIGNS: Temperature 96.4, pulse 115, respiratory rate 24, blood pressure 119/71. GENERAL: Cachectic, no acute distress. HEENT: Normocephalic, atraumatic. Pupils equal, no scleral icterus. NECK: Supple. No thyromegaly or cervical lymphadenopathy. LUNGS: Decreased breath sounds on the left with crackles. Otherwise, clear to auscultation on the right. CARDIOVASCULAR: Irregularly irregular, tachycardic. No murmur. Normal S1, S2. ABDOMEN: Soft, nontender. EXTREMITIES: 2+ pitting edema bilateral lower extremities. NEUROLOGIC: Nonfocal exam. LABS: WBC 4.6, hemoglobin 9.6, hematocrit 28.6, platelets 36. Sodium 134, potassium 4.4, chloride 100, CO2 of 24, BUN 24, creatinine 0.6. Telemetry: atrial fibrillation with rapid ventricular response. Modified barium swallow, laryngeal penetration and tracheal aspiration were noted upon administration of multiple consistencies. IMPRESSION 1. Atrial fibrillation with rapid ventricular response. 2. Streptococcus pneumoniae bacteremia. 3. Pneumonia. 4. Pancytopenia. 5. Immunosuppressed state. 6. Lung cancer squamous cell stage IV, status post recent chemotherapy. RECOMMENDATIONS: Obtain echocardiogram. Start patient on AV gino blocking agents for rate control. One dose of digoxin was given with improvement in heart rate. The patient's CHADS-VASc score is 2. He warrants anticoagulation for CVA prophylaxis; however, his pancytopenia complicates this, so no anticoagulation for now given his significant thrombocytopenia. We will need to discuss with his oncologist regarding long-term anticoagulation. Antibiotics per primary service. Pending heart rate control and echocardiogram results regarding surgical clearance. Thank you for this consult. We will continue to follow. Job#: [id number] STEPAN
--- NOTE | 2017-03-23 14:51 | Progress Note ---
DATE: March 23, 2017 PULMONARY MEDICINE PROGRESS NOTE SUBJECTIVE: was seen and examined at bedside. He continues to have low energy and excess sleepiness. In the middle of night, he went into complicating tachycardia and agitation. Patient was given some medications for agitation component. He was found to have atrial fibrillation. Medicines were escalated slowly. Patient with a so far refractory tachyarrhythmia. Amiodarone drip is continued. Furthermore, patient on Cardizem drip and this is being continued with residual high heart rate. Oxygen saturation 98% on 2 liters per minute. No visible respiratory distress. Mild confusion as per what seems to be a recent baseline. REVIEW OF SYSTEMS: No chest pain, no headache. OBJECTIVE VITAL SIGNS: Afebrile. Vital signs noted per electronic record. GENERAL: No acute distress, but looks weak, chronic, mildly cachectic in bed. HEENT: Normocephalic, atraumatic. NECK: Supple. Throat midline. LUNGS: Bilateral air entry, few rhonchi. CARDIOVASCULAR: S1, S2. No murmurs, rubs, or gallops. ABDOMINAL: Soft, nontender. EXTREMITIES: No clubbing, no cyanosis. There is 1+ edema. INTEGUMENT: No rash, no purpura. LABS: Potassium 4.4, magnesium 1.3, calcium 11.6. IMPRESSION AND PLAN 1. Hypercalcemia malignancy. 2. Complicating atrial fibrillation with rapid ventricular rate. 3. Wheezes, encroaching left airway tumor, rule out high-grade left-sided obstruction. 4. Significant abdominal pain, partly from the spleen, partly from other sources. 5. Advanced stage lung cancer, stage IV with metastases. 6. Pain. Surveillance bronchoscopy was put off given the tachyarrhythmia. There is no ellison for this as the patient is not very symptomatic and he needs to get over the other issues and would be better tested as soon as his platelets are better. Continue followup of his breathing. Splenectomy tentatively tomorrow if he is more optimized. Continue the cardiac medications. Will follow along closely. Patient was transferred to ICU care and ICU nurse at bedside. Patient remains on electrolytes repletion. Will follow along closely. Try to encourage diet today given his albumin of 1.4. Poor long-term prognosis here. Will follow along closely. Patient also to have calcium checkups as he has already received 1 dose of bisphosphonate and will continue some IV hydration. Greater than 30 minutes in direct care today. Multiple evaluations and intervention. Job#: [id number] SAK
--- NOTE | 2017-03-23 14:58 | Progress Note ---
DATE: March 23, 2017 SUBJECTIVE: Patient seen and examined today. Patient appears fatigued, tired, and lethargic. He was in process to move to the intensive care unit for atrial fibrillation. He developed rapid ventricular rate. He is currently on Cardizem drip, waiting to follow with greenskeeper. PHYSICAL EXAMINATION GENERAL: Alert, awake, communicative. HEENT: Normocephalic, atraumatic. Sclerae pink. Conjunctivae clear. NECK: Supple. CHEST: Decreased breath sounds at the bases. CARDIOVASCULAR: Irregular rate and rhythm. ABDOMEN: Soft. EXTREMITIES: No edema. LABS AND IMAGING: Reviewed. ASSESSMENT AND PLAN: Patient with non-small cell lung cancer, was on chemo, admitted in hospital with chemo-induced neutropenia and anemia. He also had a splenic cyst. He was scheduled to get splenectomy tomorrow, but he had worsening arrhythmia with AFib with a right rapid ventricular rate. Patient currently started on Cardizem, following greenskeeper. I have discussed in detail with patient and family. So far, holding further surgical management because of current situation. We will wait for the cardiac clearance. Patient's neutropenia improved with the Neupogen. Platelets counts are low, but stable. Patient is still a candidate for the anticoagulation at current situation. Will continue remaining care. Will monitor patient closely. Job#: [id number] STEPAN
[2017-03-23] MEDS: BALSAM PERU/CASTOR OIL 60 GM OINT...G. TP SCH ×2 (16:34→20:25)
[2017-03-23] MEDS: LEVOFLOXACIN 750MG/D5W 150ML 150 ML IV SCH (16:34)
[2017-03-23] MEDS ORDERED: METOPROLOL TARTRATE INJ 1 MG/ML VIAL IV PRN (18:00)
[2017-03-23] MEDS ORDERED: DIGOXIN INJ 0.25 MG/ML 2 ML AMP IV NR (18:15)
[2017-03-23] MEDS: METOPROLOL TARTRATE 25 MG TAB PO SCH (18:30)
[2017-03-23 19:54] LABS: CREATINE KINASE MB 0.5 ng/mL (0.00-5.00)
[2017-03-23] MEDS: SIMVASTATIN 20 MG TAB PO SCH (21:44)
[2017-03-24] VITALS (95 sets, daily range): BP systolic 80–164; BP diastolic 56–132
[2017-03-24] MEDS: METOPROLOL TARTRATE 25 MG TAB PO SCH ×4 (00:54→18:07)
[2017-03-24] MEDS: NYSTATIN SUSPENSION 5 ML UDC PO SCH ×4 (00:54→18:07)
[2017-03-24] MEDS: DILTIAZEM HCL 100 ML IV SCH (00:55)
[2017-03-24] MEDS: HYDROCODONE/APAP 10MG-325MG TAB PO PRN ×3 (00:55→21:51)
[2017-03-24] MEDS: IPRATROPIUM BROMIDE 0.02% 2.5 ML NEB NEB SCH ×5 (01:00→19:00)
[2017-03-24] MEDS: DOXYCYCLINE 100MG/NS 100ML 100 ML IV SCH ×2 (01:09→12:40)
[2017-03-24] MEDS: ALBUTEROL/IPRATROPIUM 3 ML NEB NEB SCH ×6 (03:07→23:42)
[2017-03-24] MEDS: AMIODARONE HCL 900 MG in DEXTROSE 5 % 500ML BOTTLE 500 ML IV SCH (06:21)
[2017-03-24] MEDS ORDERED: AMIODARONE 900MG 500 ML IV ONE (06:25)
--- NOTE | 2017-03-24 06:30 | Diagnostic Imaging Report ---
EXAMINATION: CHEST SINGLE (PORTABLE) INDICATION: Screening, CHF COMPARISON: 03/19/2017 FINDINGS: TUBES and LINES: Stable left-sided chest port. LUNGS: Lungs are not well inflated. Worsening central vascular congestion, interlobular septi thickening and confluent opacities with extensive opacification of the left lower lobe PLEURA: Small left pleural effusion. HEART AND MEDIASTINUM: Cardiac size is mildly enlarged. BONES AND SOFT TISSUES: No acute osseous lesion. Soft tissues are unremarkable. UPPER ABDOMEN: No free air under the diaphragm. IMPRESSION: 1. Worsening pulmonary edema and persistent left lower lobe airspace disease with pleural effusion. 2. Multifocal pneumonia cannot be excluded. Signed by: Dr. Kwesi Baron M.D. on 03/24/2017 6:26 AM
[2017-03-24 06:46] LABS: BASOPHILS # (AUTO) 0.1 (0.0-0.1); BASOPHILS % 1.6 % (0.0-1.0); HEMATOCRIT 25.2 % (38.2-49.6); HEMOGLOBIN 8.7 g/dL (14.0-18.0); LYMPHOCYTES # (AUTO) 0.3 (1.0-3.2); LYMPHOCYTES % 7.1 % (18.0-39.1); MEAN CORPUSCULAR HEMOGLOBIN 29.4 pg (28-32); MEAN CORPUSCULAR HGB CONC 34.5 g/dL (31-35); MEAN CORPUSCULAR VOLUME 85.1 fL (81-99); MONOCYTES # (AUTO) 0.2 (0.2-0.8); MONOCYTES % 4.8 % (4.4-11.3); NEUTROPHILS # (AUTO) 3.7 (2.1-6.9); NEUTROPHILS % 84.7 % (38.7-80.0); RED BLOOD COUNT 2.96 x10e6/uL (4.3-5.7); RED CELL DISTRIBUTION WIDTH 21.2 % (11.7-14.4)
[2017-03-24] MEDS: DEXAMETHASONE 4 MG TAB PO SCH ×3 (06:46→21:51)
[2017-03-24 06:49] LABS: PLATELET COUNT 39 x10e3/uL (140-360)
[2017-03-24 07:06] LABS: ALANINE AMINOTRANSFERASE 35 IU/L (0-55); ALBUMIN 1.5 g/dL (3.5-5.0); ALBUMIN/GLOBULIN RATIO 0.4 (0.8-2.0); ALKALINE PHOSPHATASE 100 IU/L (40-150); BLOOD UREA NITROGEN 25 mg/dL (7-26); BUN/CREATININE RATIO 40 (6-25); CALCIUM 10.4 mg/dL (8.4-10.2); CARBON DIOXIDE 26 mmol/L (22-29); CHLORIDE 102 mmol/L (98-107); CREATININE, SERUM 0.62 mg/dL (0.72-1.25); EST GLOMERULAR FILTRATION RATE > 60 ML/MIN (60-); GLUCOSE 164 mg/dL (74-118); MAGNESIUM 1.2 MG/DL (1.3-2.1); PHOSPHORUS 2.7 MG/DL (2.3-4.7); SODIUM 137 mmol/L (136-145)
[2017-03-24] MEDS: DIGOXIN 0.125 MG TAB PO SCH (08:51)
[2017-03-24] MEDS: LACTULOSE SYRUP 20 GM/30 ML UDC PO SCH (08:51)
[2017-03-24] MEDS: LISINOPRIL 20 MG TAB PO SCH (08:52)
[2017-03-24] MEDS: ONDANSETRON HCL 4 MG ORAL DISINTEGRATING TAB PO SCH ×3 (08:52→21:50)
[2017-03-24] MEDS: GABAPENTIN 300 MG CAP PO SCH (08:52)
[2017-03-24] MEDS: MAALOX/LIDOCAINE/BENADRYL 120 ML BTL PO SCH ×2 (08:52→21:50)
[2017-03-24] MEDS: BALSAM PERU/CASTOR OIL 60 GM OINT...G. TP SCH ×2 (08:52→21:50)
--- NOTE | 2017-03-24 10:42 | Progress Note ---
DATE: March 24, 2017 SUBJECTIVE: Patient seen and examined today. Patient appears fatigued, tired, and also delirious. He has required [id number] pain medication. He is also under restraint. He is following with meat team lead. The current heart rate is controlled. He is on amiodarone and Cardizem. His white cell count improved. The platelet count is still low, but no evidence of any bleeding. Hemoglobin is low, but stable. PHYSICAL EXAMINATION GENERAL: Alert, awake, confused, delirious, in restraints. HEENT: Normocephalic, atraumatic. Sclerae are pink. Conjunctivae are clear. NECK: Supple. CHEST: Decreased breath sounds at the bases. CARDIOVASCULAR: Regular rate. ABDOMEN: Mildly tender. TV TECHNICIAN: Confused. EXTREMITIES: No edema. LABS AND IMAGING: Reviewed. ASSESSMENT AND PLAN: Patient has history of lung cancer, was on chemotherapy, admitted with pancytopenia. Workup shows chemotherapy-induced pancytopenia and anemia. Patient required Neupogen. The patient also has a splenic cyst followed by surgery. Recommendation was surgery. He had worsening heart condition with AFib with rapid ventricular rate, following with meat team lead. I have had a very detailed discussion with the patient and the family including son. We talked about the current options and management. Right now, we will wait for cardiology clearance for possible surgery. They are also considering hospice care or possible transfer to [facility] in the future. At this point, we will continue remaining care. Platelet transfusion if any surgery. Will monitor the patient closely. Job#: [id number]
--- NOTE | 2017-03-24 10:57 | Progress Note ---
DATE: March 24, 2017 CARDIOLOGY PROGRESS NOTE SUBJECTIVE: Patient was transferred to the ICU yesterday for atrial fibrillation with rapid ventricular response. He is confused per his family and does not really respond verbally. OBJECTIVE VITAL SIGNS: Temperature 97.8 degrees, pulse 91, respiratory rate 20, blood pressure 144/97, oxygen saturation 100% on 2 L nasal cannula. GENERAL: Cachectic, no acute distress. LUNGS: Decreased breath sounds on the left with crackles. Otherwise, clear to auscultation on the right. CARDIOVASCULAR: Irregularly irregular, normal rate, no murmur. Normal S1, S2. ABDOMEN: Soft, nontender. EXTREMITIES: No edema. CARDIAC MEDICATIONS 1. Lisinopril 40 mg p.o. daily. 2. Digoxin 0.125 mg p.o. q.a.m. 3. Metoprolol tartrate 25 mg p.o. q.6 h. 4. Amiodarone drip. 5. Diltiazem drip. LABS: WBC 4.3, hemoglobin 8.7, hematocrit 25.2, platelets 39. Sodium 137, potassium 4, chloride 102, CO2 of 26, BUN 25, creatinine 0.62. TELEMETRY: Atrial fibrillation. IMPRESSION 1. Atrial fibrillation, currently rate controlled. 2. Streptococcus pneumoniae bacteremia. 3. Pneumonia. 4. Pancytopenia. 5. Immunosuppressed state. 6. Squamous cell lung cancer stage IV, status post recent chemotherapy. 7. Moderately reduced left ventricular systolic function on echocardiogram. RECOMMENDATIONS: Titrate up metoprolol to 50 mg p.o. q.6 h. Attempt to wean off diltiazem drip. We will stop the amiodarone drip as it has not been successful converting the patient back to normal sinus rhythm. Continue digoxin for rate control. Although the patient's CHADS-VASc score is 2, he warrants anticoagulation for CVA prophylaxis. His pancytopenia limits our ability to start him on anticoagulation. Antibiotics per primary service. Family indicates they were previously told the patient's life expectancy is limited and their goal was to maintain the patient's quality of life given poor long-term prognosis. Plan for medical management of his cardiac conditions. Thank you for this consult. We will continue to follow. Job#: [id number]
[2017-03-24] MEDS: SODIUM CHLORIDE 0.9% 1000ML 1,000 ML IV SCH (12:48)
[2017-03-24] MEDS ORDERED: MAGNESIUM SULFATE 2GM/50ML 50 ML IV ONE (14:30)
--- NOTE | 2017-03-24 15:10 | Diagnostic Imaging Report ---
PROCEDURE:US CHEST (INCL MEDIASTINUM) COMPARISON:[facility], CT, CT CHEST WO, 03/18/2017, 18:00. INDICATIONS:PNEUMONIA, R/O EFFUSION FINDINGS:There is no right pleural effusion. There is no significant left pleural effusion. There is a large fluid collection with low-level internal echoes, abutting the spleen which was not measured however, corresponds to the collection identified on recent CT examination of the chest. CONCLUSION:No significant pleural effusion bilaterally. Large fluid collection in the left upper quadrant abutting the spleen. Shelli Herron M.D. Dictated by: Shelli Herron M.D. on 03/24/2017 at 15:18 Electronically approved by: Shelli Herron M.D. on 03/24/2017 at 15:18
[2017-03-24] MEDS: LEVOFLOXACIN 750MG/D5W 150ML 150 ML IV SCH (16:04)
--- NOTE | 2017-03-24 16:06 | Progress Note ---
DATE: March 24, 2017 PULMONARY MEDICINE PROGRESS NOTE SUBJECTIVE: was seen and examined at bedside. He is in the ICU at this time. He has better rate control of his cardiac arrhythmia. Echo showed a 40% to 45% LVEF estimated. However, due to improvement in the rate control we got the amiodarone drip off. Cardizem is now at 5 mikes per hour. The patient with heart rate in the 70's and 80's. The patient taking in very little as he still gets a lot of pain medicines. He had 2 bowel movements overnight. Chest x-ray done showing increasing left side opacity, atelectasis versus pneumonia related. REVIEW OF SYSTEMS: Cannot get as he is still altered. OBJECTIVE VITAL SIGNS: Afebrile. Vital signs noted per electronic record. GENERAL: He looks very weak and chronic and in bed. HEENT: Normocephalic, atraumatic. NECK: Supple. Throat midline. LUNGS: Bilateral air entry, few rhonchi, decreased breath sounds, especially on the left side. CARDIOVASCULAR: S1 and S2, no murmurs, rubs or gallops. ABDOMEN: Soft and nontender. EXTREMITIES: No clubbing or cyanosis. There is only trace edema. INTEGUMENT: No rash, no purpura. LABORATORY DATA: BUN 25, creatinine 0.6, white count 4.3, platelets 39,000 and hematocrit 25. Calcium 10.4, magnesium 1.2. IMPRESSION 1. Atrial fibrillation with rapid ventricular rate, difficult to control. 2. Encephalopathy. 3. Streptococcal pneumonia bacteremia. 4. Worsening chest x-ray, increased atelectasis versus fluid overload versus parapneumonic effusion. 5. Cardiomyopathy with left ventricular ejection fraction 40% to 45%. 6. Lung cancer, squamous cell, stage 4. 7. Possible entrapment of proximal left airways from CT chest. 8. Splenectomy is priority. Continue to work for this after cardiac clearance. PLAN: Hopefully pain medicine can go down and he can eat better. Continue diet for now as stated. Ultrasound of the chest will be done and if there is a lot of fluid will consider to ask surgeon for supradiaphragmatic tube placement and possible videoscopic exploration when he does splenectomy. Will follow up closely. Job#: [id number]
[2017-03-24] MEDS: HYDROMORPHONE 2MG/ML INJ IV PRN (18:36)
[2017-03-24] MEDS: SIMVASTATIN 20 MG TAB PO SCH (21:50)
[2017-03-25] VITALS (94 sets, daily range): BP systolic 100–155; BP diastolic 41–127
[2017-03-25] MEDS: METOPROLOL TARTRATE 25 MG TAB PO SCH ×4 (00:25→17:50)
[2017-03-25] MEDS: SODIUM CHLORIDE 0.9% 1000ML 1,000 ML IV SCH (00:25)
[2017-03-25] MEDS: NYSTATIN SUSPENSION 5 ML UDC PO SCH ×4 (00:25→17:50)
[2017-03-25] MEDS: IPRATROPIUM BROMIDE 0.02% 2.5 ML NEB NEB SCH ×4 (01:00→19:00)
[2017-03-25] MEDS: DOXYCYCLINE 100MG/NS 100ML 100 ML IV SCH ×2 (01:26→12:44)
[2017-03-25] MEDS: ALBUTEROL/IPRATROPIUM 3 ML NEB NEB SCH ×6 (03:08→23:34)
[2017-03-25 05:38] LABS: BASOPHILS # (AUTO) 0.1 (0.0-0.1); HEMATOCRIT 26.1 % (38.2-49.6); HEMOGLOBIN 8.7 g/dL (14.0-18.0); LYMPHOCYTES # (AUTO) 0.4 (1.0-3.2); LYMPHOCYTES % 8.6 % (18.0-39.1); MEAN CORPUSCULAR HEMOGLOBIN 28.5 pg (28-32); MEAN CORPUSCULAR HGB CONC 33.3 g/dL (31-35); MEAN CORPUSCULAR VOLUME 85.6 fL (81-99); MONOCYTES # (AUTO) 0.1 (0.2-0.8); MONOCYTES % 2.4 % (4.4-11.3); NEUTROPHILS # (AUTO) 4.4 (2.1-6.9); NEUTROPHILS % 86.2 % (38.7-80.0); RED BLOOD COUNT 3.05 x10e6/uL (4.3-5.7); RED CELL DISTRIBUTION WIDTH 21.2 % (11.7-14.4)
[2017-03-25 05:41] LABS: PLATELET COUNT 47 x10e3/uL (140-360)
[2017-03-25 05:53] LABS: INR 1.07; PROTHROMBIN TIME 14.5 seconds (11.9-14.5)
[2017-03-25 05:54] LABS: PARTIAL THROMBOPLASTIN TIME 31.3 seconds (23.8-35.5)
[2017-03-25 06:05] LABS: ALANINE AMINOTRANSFERASE 29 IU/L (0-55); ALBUMIN 1.6 g/dL (3.5-5.0); ALBUMIN/GLOBULIN RATIO 0.4 (0.8-2.0); ALKALINE PHOSPHATASE 94 IU/L (40-150); ANION GAP 12.7 mmol/L (8-16); BLOOD UREA NITROGEN 23 mg/dL (7-26); BUN/CREATININE RATIO 35 (6-25); CALCIUM 10.4 mg/dL (8.4-10.2); CARBON DIOXIDE 26 mmol/L (22-29); CHLORIDE 105 mmol/L (98-107); CREATININE, SERUM 0.65 mg/dL (0.72-1.25); EST GLOMERULAR FILTRATION RATE > 60 ML/MIN (60-); GLUCOSE 173 mg/dL (74-118); MAGNESIUM 1.4 MG/DL (1.3-2.1); POTASSIUM 3.7 mmol/L (3.5-5.1); SODIUM 140 mmol/L (136-145)
[2017-03-25] MEDS: DEXAMETHASONE 4 MG TAB PO SCH ×2 (06:36→17:49)
--- NOTE | 2017-03-25 07:07 | Diagnostic Imaging Report ---
EXAMINATION: CHEST SINGLE (PORTABLE) INDICATION: Pneumonia COMPARISON: 03/24/2017 FINDINGS: TUBES and LINES: Stable left-sided chest port. LUNGS: Lungs are not well inflated. Stable central vascular congestion, interlobular septi thickening and confluent opacities with extensive opacification of the left lower lobe PLEURA: Small left pleural effusion. HEART AND MEDIASTINUM: Cardiac size is mildly enlarged. BONES AND SOFT TISSUES: No acute osseous lesion. Soft tissues are unremarkable. UPPER ABDOMEN: No free air under the diaphragm. IMPRESSION: 1. Stable pulmonary edema and persistent left lower lobe airspace disease with pleural effusion. 2. Multifocal pneumonia cannot be excluded. Signed by: Dr. Kwesi Baorn M.D. on 03/25/2017 7:04 AM
[2017-03-25 08:13] LABS: BAND NEUTROPHILS % (MANUAL) 1 %; LYMPHOCYTES % (MANUAL) 5 % (19-48); METAMYELOCYTES % (MANUAL) 1 % (0-0); MONOCYTES % (MANUAL) 2 % (3.4-9.0); NEUTROPHILS % (MANUAL) 91 % (40-74); NUCLEATED RED BLOOD CELLS 1
[2017-03-25 08:14] LABS: PLATELET MORPHOLOGY COMMENT FEW LARGE; RBC MORPHOLOGY COMMENT NORMAL
[2017-03-25 08:15] LABS: ANISOCYTOSIS SLIG; HYPOCHROMASIA SLIGHT; PLATELET ESTIMATE MODERATELY DECREASED; POIKILOCYTOSIS SLIG; TARGET CELLS FEW
[2017-03-25] MEDS: LACTULOSE SYRUP 20 GM/30 ML UDC PO SCH (09:00)
[2017-03-25] MEDS: ONDANSETRON HCL 4 MG ORAL DISINTEGRATING TAB PO SCH ×3 (09:00→22:07)
[2017-03-25] MEDS: GABAPENTIN 300 MG CAP PO SCH (09:00)
[2017-03-25] MEDS: MAALOX/LIDOCAINE/BENADRYL 120 ML BTL PO SCH ×2 (09:00→22:07)
[2017-03-25] MEDS: LISINOPRIL 20 MG TAB PO SCH (09:00)
[2017-03-25] MEDS: AMIODARONE HCL 200 MG TAB PO SCH ×2 (10:32→17:49)
[2017-03-25] MEDS: DIGOXIN 0.125 MG TAB PO SCH (10:33)
[2017-03-25] MEDS: BALSAM PERU/CASTOR OIL 60 GM OINT...G. TP SCH ×2 (10:35→22:07)
--- NOTE | 2017-03-25 11:14 | Progress Note ---
DATE: March 25, 2017 CARDIOLOGY PROGRESS NOTE SUBJECTIVE: The patient denies chest pain or shortness of breath. He is n.p.o. for splenectomy today. OBJECTIVE VITALS: Temperature 97.2 degrees, pulse 70, respiratory rate 16, blood pressure 129/82, oxygen saturation 100% on 2 L nasal cannula. GENERAL: Cachectic and in no acute distress. LUNGS: Decreased breath sounds on the left with crackles. Otherwise, clear to auscultation on the right. CARDIOVASCULAR: Normal rate. Regular rhythm. No murmur. Normal S1 and S2. ABDOMEN: Soft and nontender. EXTREMITIES: No edema. CARDIAC MEDICATIONS 1. Metoprolol tartrate 25 mg p.o. q.6 h. 2. Digoxin 0.125 mg p.o. daily. 3. Simvastatin 20 mg p.o. at bedtime. 4. Lisinopril 40 mg p.o. daily. LABS: WBC 5.1, hematocrit 8.7, hematocrit 26.1, and platelets 47,000. Sodium 140, potassium 3.7, chloride 105, CO2 26, BUN 23, creatinine 0.65. Telemetry is normal sinus rhythm. IMPRESSION 1. Atrial fibrillation converted to normal sinus rhythm. 2. Streptococcus pneumonia bacteremia. 3. Moderate left ventricular systolic function on echocardiogram. 4. Pneumonia. 5. Pancytopenia. 6. Immunosuppressed state. 7. Squamous cell carcinoma of the lung, stage IV, status post recent chemotherapy. RECOMMENDATIONS: Patient converted to normal sinus rhythm. Add amiodarone 200 mg p.o. b.i.d. in attempt to maintain sinus rhythm. Continue digoxin. Although the patient's Bautista VAS score is 2, which warrants anticoagulation for CVA prophylaxis, his pancytopenia limits our ability to place him on anticoagulation. Antibiotics per primary service. The patient is high risk for cardiovascular complications for intermediate risk procedure given his moderately reduced LV systolic function on echo, as well as his less than optimal functional status. However, continue perioperative beta blockade. Thank you for this consult. We will continue to follow. Job#: [id number] RODRI
[2017-03-25] MEDS ORDERED: HEPARIN SOD/SOD CHLORIDE 1,000 ML ONE (14:17)
--- NOTE | 2017-03-25 14:31 | Progress Note ---
DATE: March 25, 2017 PULMONARY MEDICINE PROGRESS NOTE SUBJECTIVE: was seen and examined at bedside. He continues to have a lot of confusion. His blood counts are starting to improve; and, therefore, he is being prepared for surgery. Ultrasound of the chest did not show any significant left-sided pleural effusion. Chest x-ray continues to show the left-sided consolidation and smaller right patchy opacities. Liters in 1.5, liters out 0.9, and multiple voids. REVIEW OF SYSTEMS: Cannot get reliably as he is altered. OBJECTIVE VITAL SIGNS: Afebrile. Vital signs noted per electronic record. GENERALLY: No acute distress, alert but definitely confused, and oriented only x1. HEENT: Normocephalic, atraumatic. NECK: Supple. Throat midline. LUNGS: Bilateral air entry, a few rhonchi, decreased breath sounds in the left base. CARDIOVASCULAR: S1 and S2. No murmurs, rubs or gallops. ABDOMINAL: Soft, nontender. EXTREMITIES: No clubbing, no cyanosis. There is trace edema. INTEGUMENT: No rash. No purpura. LABS: Potassium 3.7, BUN 23, creatinine 0.7. White count 5, hematocrit 26, platelets 47. IMPRESSION AND PLAN 1. Pancytopenia, multifactorial but includes post chemotherapy. 2. Weakness. 3. Encephalopathy, multifactorial. 4. Lung cancer, stage IV. 5. Rapidly enlarging spleen with refractory pain syndrome. 6. Circumferentially encased left large airways, rule out proximal airways obstruction. Continue current treatment. Repeat blood work tomorrow. Give platelets. Patient expectant for surgery today. Splenectomy is planned surgery. Will decrease the steroids slightly. Follow up on the digoxin and will have to follow up rate control very closely after surgery. Continue antibiotics now for streptococcal pneumonia. This also had bacteremia; so, he will need a longer course of antibiotics. Job#: [id number] EV
--- NOTE | 2017-03-25 14:52 | Progress Note ---
DATE: March 25, 2017 SUBJECTIVE: Patient seen and examined today. Patient appears comfortable, clinically doing better. No worsening event noted. He is currently in sinus rhythm. No chest pain, headache or dizziness. No evidence of any bleeding noted. His CBC this morning showed stable white cell and improvement in his platelet. PHYSICAL EXAMINATION GENERAL: Alert, awake, communicative. HEENT: Normocephalic, atraumatic. Sclerae are pink. Conjunctivae are clear. NECK: Supple. CHEST: Decreased breath sounds at the bases. CARDIOVASCULAR: Regular rate and rhythm. ABDOMEN: Soft, nontender. EXTREMITIES: No edema. LABS AND IMAGING: Reviewed. ASSESSMENT AND PLAN: Patient with history of multiple medical conditions. I am currently following for: 1. Stage IV lung cancer. Patient was on chemo, admitted with chemo-induced pancytopenia. Counts are improving. Recommendation: Close observation. Platelet transfusion before surgery. 2. Anemia. Current hemoglobin is stable. Etiology multifactorial and includes anemia of chronic disease. Recommendation: Close observation. 3. Splenic cyst. Following surgeon for possible splenectomy. 1. Atrial fibrillation. 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 Continue current care. Will follow patient closely. Job#: [id number] SAK
[2017-03-25] MEDS: LEVOFLOXACIN 750MG/D5W 150ML 150 ML IV SCH (15:48)
[2017-03-25] MEDS: SIMVASTATIN 20 MG TAB PO SCH (22:07)
[2017-03-26] VITALS (34 sets, daily range): BP systolic 115–148; BP diastolic 62–89
[2017-03-26] MEDS ORDERED: HYDROCODONE/APAP 10MG-325MG TAB PO PRN (00:45)
[2017-03-26] MEDS: DOXYCYCLINE 100MG/NS 100ML 100 ML IV SCH ×3 (00:53→14:39)
[2017-03-26] MEDS: IPRATROPIUM BROMIDE 0.02% 2.5 ML NEB NEB SCH ×4 (01:00→19:00)
[2017-03-26] MEDS: ALBUTEROL/IPRATROPIUM 3 ML NEB NEB SCH ×6 (03:00→23:00)
[2017-03-26] MEDS: NYSTATIN SUSPENSION 5 ML UDC PO SCH ×5 (05:52→23:41)
[2017-03-26] MEDS: METOPROLOL TARTRATE 25 MG TAB PO SCH ×5 (05:52→23:41)
[2017-03-26] MEDS: DEXAMETHASONE 4 MG TAB PO SCH ×2 (05:52→18:00)
--- NOTE | 2017-03-26 06:48 | Diagnostic Imaging Report ---
EXAMINATION: CHEST SINGLE (PORTABLE) INDICATION: Pneumococcal pneumonia COMPARISON: 03/25/2017 FINDINGS: TUBES and LINES: Left-sided chest port is stable. LUNGS: Lungs are not well inflated. Interval improvement in left lower lobe airspace opacity. Otherwise, stable patchy airspace opacities in the left upper and right upper lung PLEURA: No pleural effusion or pneumothorax. HEART AND MEDIASTINUM: The cardiomediastinal silhouette is unremarkable. BONES AND SOFT TISSUES: No acute osseous lesion. Soft tissues are unremarkable. UPPER ABDOMEN: No free air under the diaphragm. IMPRESSION: Interval improvement in left lower lobe pneumonia. Persistent multifocal involvement Signed by: Dr. Kwesi Baron M.D. on 03/26/2017 6:44 AM
[2017-03-26] MEDS ORDERED: SODIUM CHLORIDE 0.9% 250ML 250 ML ONE (07:44)
[2017-03-26] MEDS: LISINOPRIL 20 MG TAB PO SCH (08:45)
[2017-03-26] MEDS: AMIODARONE HCL 200 MG TAB PO SCH ×2 (08:45→17:00)
[2017-03-26] MEDS: DIGOXIN 0.125 MG TAB PO SCH (08:45)
[2017-03-26] MEDS: BALSAM PERU/CASTOR OIL 60 GM OINT...G. TP SCH ×2 (08:46→21:01)
[2017-03-26] MEDS: ONDANSETRON HCL 4 MG ORAL DISINTEGRATING TAB PO SCH ×3 (08:46→21:01)
[2017-03-26] MEDS: GABAPENTIN 300 MG CAP PO SCH (08:46)
[2017-03-26] MEDS: LACTULOSE SYRUP 20 GM/30 ML UDC PO SCH (08:46)
[2017-03-26] MEDS: MAALOX/LIDOCAINE/BENADRYL 120 ML BTL PO SCH ×2 (08:46→21:01)
[2017-03-26 10:45] LABS: BASOPHILS % 0.5 % (0.0-1.0); HEMATOCRIT 25.2 % (38.2-49.6); HEMOGLOBIN 8.1 g/dL (14.0-18.0); LYMPHOCYTES # (AUTO) 0.5 (1.0-3.2); LYMPHOCYTES % 12.8 % (18.0-39.1); MEAN CORPUSCULAR HEMOGLOBIN 28.4 pg (28-32); MEAN CORPUSCULAR HGB CONC 32.1 g/dL (31-35); MEAN CORPUSCULAR VOLUME 88.4 fL (81-99); MONOCYTES # (AUTO) 0.2 (0.2-0.8); NEUTROPHILS % 80.6 % (38.7-80.0); PLATELET COUNT 101 x10e3/uL (140-360); RED BLOOD COUNT 2.85 x10e6/uL (4.3-5.7); RED CELL DISTRIBUTION WIDTH 21.2 % (11.7-14.4)
[2017-03-26] MEDS ORDERED: BUPIVACAINE 0.25% 30ML SDV INJ ONE (11:08)
[2017-03-26] MEDS ORDERED: BUPIVACAINE HCL 0.5% INJ 30 ML VIAL INJ ONE (11:08)
[2017-03-26] MEDS ORDERED: LEVOFLOXACIN 500MG/D5W 100ML 100 ML IV ONE (11:09)
[2017-03-26 11:22] LABS: BAND NEUTROPHILS % (MANUAL) 1 %; EOSINOPHILS % (MANUAL) 1 % (0-7); LYMPHOCYTES % (MANUAL) 15 % (19-48); MONOCYTES % (MANUAL) 2 % (3.4-9.0); NEUTROPHILS % (MANUAL) 81 % (40-74)
[2017-03-26 11:23] LABS: PLATELET ESTIMATE ADEQUATE; PLATELET MORPHOLOGY COMMENT NORMAL; RBC MORPHOLOGY COMMENT NORMAL
[2017-03-26] MEDS ORDERED: ONDANSETRON HCL INJ 2 MG/ML VIAL IV PRN (13:45)
[2017-03-26] MEDS ORDERED: FENTANYL CITRATE/PF 100MCG/2 ML INJ ONE ×2 (14:33→18:33)
[2017-03-26] MEDS: LEVOFLOXACIN 750MG/D5W 150ML 150 ML IV SCH (16:00)
[2017-03-26] MEDS: DEXTROSE 5%/LACTATED RINGERS 1,000 ML IV SCH ×2 (16:10→21:01)
[2017-03-26] MEDS: HYDROMORPHONE 2MG/ML INJ IV PRN ×2 (17:18→22:58)
[2017-03-26 17:35] LABS: ALANINE AMINOTRANSFERASE 29 IU/L (0-55); ALBUMIN 1.6 g/dL (3.5-5.0); ALBUMIN/GLOBULIN RATIO 0.5 (0.8-2.0); ALKALINE PHOSPHATASE 71 IU/L (40-150); ANION GAP 10.4 mmol/L (8-16); BLOOD UREA NITROGEN 25 mg/dL (7-26); BUN/CREATININE RATIO 40 (6-25); CALCIUM 9.5 mg/dL (8.4-10.2); CARBON DIOXIDE 25 mmol/L (22-29); CHLORIDE 109 mmol/L (98-107); CREATININE, SERUM 0.62 mg/dL (0.72-1.25); EST GLOMERULAR FILTRATION RATE > 60 ML/MIN (60-); GLUCOSE 159 mg/dL (74-118); PHOSPHORUS 3.6 MG/DL (2.3-4.7); POTASSIUM 3.4 mmol/L (3.5-5.1); SODIUM 141 mmol/L (136-145)
[2017-03-26 17:37] LABS: MAGNESIUM 1.1 MG/DL (1.3-2.1)
[2017-03-26] MEDS ORDERED: ESMOLOL HCL 100MG/10ML 10 MG/ML VIAL ONE (18:09)
[2017-03-26] MEDS ORDERED: LIDOCAINE HCL 2% LOCAL INJ 5 ML SDV VIAL INJ ONE (18:09)
[2017-03-26] MEDS ORDERED: ROCURONIUM BROMIDE 10 MG/ML 5ML VIAL ONE (18:09)
[2017-03-26] MEDS ORDERED: DEXAMETHASONE SOD PHOS INJ 4 MG/ML VIAL ONE (18:09)
[2017-03-26] MEDS ORDERED: ETOMIDATE 2 MG/ML 10 ML INJ IV ONE (18:09)
[2017-03-26] MEDS ORDERED: ONDANSETRON HCL INJ 2 MG/ML VIAL ONE (18:09)
[2017-03-26] MEDS ORDERED: SEVOFLURANE INHAL SOLN 250 ML PEN BTL ONE (18:09)
[2017-03-26] MEDS ORDERED: NEOSTIGMINE 5 MG/5ML SYR ONE (18:09)
[2017-03-26] MEDS ORDERED: GLYCOPYRROLATE INJ 1MG/ 5 ML SYR ONE (18:09)
[2017-03-26] MEDS ORDERED: ACETAMINOPHEN 1000 MG/100 ML IV ONE (18:09)
[2017-03-26] MEDS ORDERED: EPHEDRINE SULFATE INJ 50 MG/10 ML SYR ONE (18:09)
[2017-03-26] MEDS: HYDROCODONE/APAP 10MG-325MG TAB PO PRN (21:01)
[2017-03-26] MEDS: SIMVASTATIN 20 MG TAB PO SCH (21:01)
[2017-03-27] VITALS (100 sets, daily range): BP systolic 65–155; BP diastolic 31–119
[2017-03-27] MEDS: DOXYCYCLINE 100MG/NS 100ML 100 ML IV SCH ×2 (00:17→12:30)
[2017-03-27] MEDS: HYDROCODONE/APAP 10MG-325MG TAB PO PRN ×2 (00:50→11:40)
[2017-03-27] MEDS: IPRATROPIUM BROMIDE 0.02% 2.5 ML NEB NEB SCH ×4 (01:00→19:00)
[2017-03-27] MEDS: ALBUTEROL/IPRATROPIUM 3 ML NEB NEB SCH ×6 (03:00→23:35)
[2017-03-27] MEDS: DEXAMETHASONE 4 MG TAB PO SCH ×2 (05:38→18:00)
[2017-03-27] MEDS: NYSTATIN SUSPENSION 5 ML UDC PO SCH ×4 (05:38→18:00)
[2017-03-27] MEDS: METOPROLOL TARTRATE 25 MG TAB PO SCH ×3 (05:39→18:00)
[2017-03-27] MEDS: DEXTROSE 5%/LACTATED RINGERS 1,000 ML IV SCH ×3 (05:39→21:19)
[2017-03-27 05:59] LABS: BASOPHILS # (AUTO) 0.1 (0.0-0.1); EOSINOPHILS % 0.2 % (0.0-6.0); HEMATOCRIT 25.1 % (38.2-49.6); HEMOGLOBIN 8.5 g/dL (14.0-18.0); LYMPHOCYTES # (AUTO) 0.7 (1.0-3.2); LYMPHOCYTES % 12.8 % (18.0-39.1); MEAN CORPUSCULAR HEMOGLOBIN 29.4 pg (28-32); MEAN CORPUSCULAR HGB CONC 33.9 g/dL (31-35); MEAN CORPUSCULAR VOLUME 86.9 fL (81-99); MONOCYTES # (AUTO) 0.2 (0.2-0.8); MONOCYTES % 4.7 % (4.4-11.3); NEUTROPHILS # (AUTO) 4.1 (2.1-6.9); NEUTROPHILS % 79.2 % (38.7-80.0); PLATELET COUNT 122 x10e3/uL (140-360); RED BLOOD COUNT 2.89 x10e6/uL (4.3-5.7); RED CELL DISTRIBUTION WIDTH 19.2 % (11.7-14.4)
[2017-03-27 06:15] LABS: ANION GAP 11.3 mmol/L (8-16); BLOOD UREA NITROGEN 20 mg/dL (7-26); BUN/CREATININE RATIO 33 (6-25); CALCIUM 9.7 mg/dL (8.4-10.2); CARBON DIOXIDE 26 mmol/L (22-29); CHLORIDE 106 mmol/L (98-107); EST GLOMERULAR FILTRATION RATE > 60 ML/MIN (60-); GLUCOSE 151 mg/dL (74-118); POTASSIUM 3.3 mmol/L (3.5-5.1); SODIUM 140 mmol/L (136-145)
--- NOTE | 2017-03-27 06:54 | Diagnostic Imaging Report ---
EXAMINATION: CHEST SINGLE (PORTABLE) INDICATION: Atelectasis COMPARISON: 03/26/2017 FINDINGS: TUBES and LINES: Left-sided chest port is stable LUNGS: Lungs are not well inflated. There are bibasilar atelectasis. Worsening left lung opacity PLEURA: Trace of left pleural effusion HEART AND MEDIASTINUM: The cardiomediastinal silhouette is unremarkable. BONES AND SOFT TISSUES: No acute osseous lesion. Soft tissues are unremarkable. UPPER ABDOMEN: No free air under the diaphragm. Surgical clips in the left upper quadrant. IMPRESSION: Worsening airspace disease in the left hemithorax Signed by: Dr. Kwesi Baron M.D. on 03/27/2017 6:51 AM
[2017-03-27] MEDS: AMIODARONE HCL 200 MG TAB PO SCH ×2 (09:00→17:00)
[2017-03-27] MEDS: BALSAM PERU/CASTOR OIL 60 GM OINT...G. TP SCH ×2 (09:00→21:18)
[2017-03-27] MEDS: ONDANSETRON HCL 4 MG ORAL DISINTEGRATING TAB PO SCH ×3 (09:00→21:18)
[2017-03-27] MEDS: DIGOXIN 0.125 MG TAB PO SCH (09:00)
[2017-03-27] MEDS: LISINOPRIL 20 MG TAB PO SCH (09:00)
[2017-03-27] MEDS: MAALOX/LIDOCAINE/BENADRYL 120 ML BTL PO SCH ×2 (09:00→21:18)
[2017-03-27] MEDS: GABAPENTIN 300 MG CAP PO SCH (09:00)
[2017-03-27] MEDS: LACTULOSE SYRUP 20 GM/30 ML UDC PO SCH (09:00)
[2017-03-27] MEDS: HYDROMORPHONE 2MG/ML INJ IV PRN ×3 (09:10→20:00)
[2017-03-27 10:55] LABS: BAND NEUTROPHILS % (MANUAL) 24 %; LYMPHOCYTES % (MANUAL) 24 % (19-48); NEUTROPHILS % (MANUAL) 52 % (40-74); NUCLEATED RED BLOOD CELLS 3
[2017-03-27] MEDS ORDERED: POTASSIUM CHLORIDE 20MEQ/15ML UDC ONE (11:11)
[2017-03-27] MEDS ORDERED: DEXMEDETOMIDINE HCL 200 MCG in SODIUM CHLORIDE 0.9% 50ML 48 ML IV PRN (11:30)
[2017-03-27] MEDS ORDERED: POTASSIUM CHLORIDE 20MEQ/15ML UDC NG ONE (11:30)
--- NOTE | 2017-03-27 12:54 | Progress Note ---
DATE: March 26, 2017 PULMONARY MEDICINE PROGRESS NOTE SUBJECTIVE: was seen and examined at bedside. The patient had splenectomy done, "football size" spleen noted. This was punctured and drained along with spleen to be removed by laparoscopic approach. The patient was still under anesthesia when I was called. Request for bronchoscope to be done at that time was done showing some level of obstruction, but none were seen very high yield for an aggressive intervention on pulmonology approach. The patient had platelets as well and had good response with count of 101,000 platelets today. Family was notified of the preliminary findings from the operative procedures. On chest x-ray this morning, there was some improvement of left lower lobe collapse. REVIEW OF SYSTEMS: Cannot get as he is intubated. OBJECTIVE VITAL SIGNS: Afebrile. Vital signs noted per electronic record. GENERAL: There is no distress. He is, however, still under anesthesia and not spontaneously breathing. HEENT: Normocephalic, atraumatic. NECK: Supple. Throat midline. LUNGS: Bilateral air entry, slightly decreased breath sounds on the left side, few wheezes. CARDIOVASCULAR: S1 and S2. No murmurs, rubs or gallops. ABDOMEN: Soft, probably nontender, but he is on deep anesthesia. Puncture ponce from trocars postoperatively in place. EXTREMITIES: No clubbing or cyanosis. There is 1+ edema. INTEGUMENT: No rash and no purpura. LABORATORY DATA: Other labs per record. Creatinine 0.6, white count 4, hematocrit 25. IMPRESSION AND PLAN 1. Metastatic stage 4 lung cancer, squamous variant. 2. Encroaching airway obstruction, multiple levels on the left. 3. Significant enlarging spleen with cystic features. 4. Postoperative state, status post laparoscopic splenectomy. 5. Treat for Streptococcal pneumonia including bacteremia. 6. Continue allowing to recover with anesthesia. 7. Continue weaning steroids. 8. Antibiotics will be given. 9. I will discuss with hematology/oncology, but as the patient has been weak we do not recommend early pulmonary interventions, but rather to continue chemotherapy and consider add on radiation therapy if a poor chemotherapy response is expected. The patient's remains in critical condition. Need to follow him postoperatively regarding the postoperative condition to rule out bleeding. 10. Will follow along closely. Greater than 30 minutes in care included multiple intervention and coordination, not including procedures. Job#: [id number] GH
[2017-03-27] MEDS: LEVOFLOXACIN 750MG/D5W 150ML 150 ML IV SCH (16:25)
--- NOTE | 2017-03-27 16:55 | Operative Report ---
DATE OF PROCEDURE: March 26, 2017 PREOPERATIVE DIAGNOSIS: Splenomegaly with gastric compression. POSTOPERATIVE DIAGNOSIS: Splenomegaly with gastric compression. OPERATIVE PROCEDURES: Diagnostic laparoscopy. Laparoscopic splenectomy. STREET LIGHT CLEANER: None. ANESTHESIA: General endotracheal anesthesia. INDICATIONS AND FINDINGS: Patient is a 71-year-old male with carcinoma of lung with metastasis who was found to have a greatly enlarged spleen which was partially cystic compressing the stomach. Patient complaints of pain in the left upper abdomen as well as inability to eat because of compression of the stomach. On surgery, the patient had a massively enlarged spleen, 2/3 of which was cystic component. There was tumor involving the spleen with adherence of the spleen to surrounding structures, specifically adherent to the diaphragm as well as to the transverse and splenic flexure of the colon and one area to the stomach. TECHNIQUE: After adequate general endotracheal anesthesia with the patient in the supine position with the left upper abdomen elevated, the abdomen was prepped and draped in sterile fashion with Juan solution. Approximately 3 cm above the umbilicus to the left of midline skin and subcutaneous tissue was infiltrated with 1/2 percent Marcaine. A transverse incision made and the abdominal wall was elevated. Veress needle was introduced. Pneumoperitoneum was then created. A 10 mm trocar and cannula was then passed through this wound. Laparoscopic camera was introduced. Initial laparoscopy revealed a massively enlarged spleen with adherent omentum to it and also adherent to the abdominal wall. A 5 mm trocar and cannula was placed in the left upper quadrant and a 12 mm trocar and cannula placed anterior axillary line below the costal margin. The adherent omentum was freed and the omentum was divided with LigaSure device. The splenic flexure to the transverse colon dissected away from the spleen using the LigaSure device. Care was taken not to injure the colon. Dissection was carried along towards the hilum. The lower portion of the spleen was mobilized using LigaSure device. Short gastric vessels were identified and these were divided with LigaSure device. Spleen because of its massive size was difficult manipulate. Some attachments to the abdominal wall also were divided with LigaSure device. It was decided at this point to decompress the cystic component of the spleen. Needle was used to aspirate the cystic component and about 750 mL of clear yellowish fluid was drained from the spleen making manipulation much easier. Hilum and spleen were then probed and the splenic artery was identified, dissected free and divided with Endo ÓSCAR stapler. Splenic vein also divided with Endo ÓSCAR stapler. Another branch of the artery was then divided between Hemoclips. Some remaining short gastric vessels also were divided using LigaSure device. The spleen was still adherent to the diaphragm and there was found be tumor within the spleen which was growing into the diaphragm. It was dissected free from the diaphragm. Some of the tumor was left on the diaphragm, however, and the spleen was completely freed. Remaining attachments were freed and once the spleen was completely free it was placed into a large pouch and brought out through the larger cannula site. The incision was extended to allow delivery of the spleen and it was removed. Prior to removing it, the area of the splenectomy was inspected for hemostasis, which was seen to be adequate. It was irrigated with a large volume of saline and inspected for hemostasis which was seen to be adequate. Pancreas was inspected and was found to be intact as was the fundus of the stomach. There was still some small amount of tumor on the diaphragm, some of which was cauterized. The wounds were then closed. Fascia and the larger wound was closed with number 1 PDS. Skin to all wounds closed with bam. Sterile dressings applied to each wound. The patient tolerated the procedure well. Estimated blood loss was 600 mL. There were no complications. All counts were correct. Patient was taken to the recovery room in satisfactory condition. Prior to this, however, the patient underwent bronchoscopy by Dr. Ro, details of which are covered in his note. Job#: [id number] cc:NINA RO M.D. cc:SHEELA STUBBS M.D.
[2017-03-27] MEDS ORDERED: MAGNESIUM SULFATE 2GM/50ML 50 ML IV ONE (18:15)
[2017-03-27] MEDS: SIMVASTATIN 20 MG TAB PO SCH (21:18)
[2017-03-28] VITALS (22 sets, daily range): BP systolic 98–147; BP diastolic 58–93
[2017-03-28] MEDS: NYSTATIN SUSPENSION 5 ML UDC PO SCH ×4 (00:28→17:19)
[2017-03-28] MEDS: HYDROMORPHONE 2MG/ML INJ IV PRN ×2 (00:29→04:27)
[2017-03-28] MEDS: DOXYCYCLINE 100MG/NS 100ML 100 ML IV SCH (00:29)
[2017-03-28] MEDS: IPRATROPIUM BROMIDE 0.02% 2.5 ML NEB NEB SCH ×4 (01:00→19:00)
--- NOTE | 2017-03-28 02:24 | Progress Note ---
DATE: March 26, 2017 The patient was seen and examined today. The patient appeared better clinically. Condition is improving. His mentation is markedly improved. Delirium resolved. No evidence of any active bleeding. PHYSICAL EXAMINATION GENERAL: Alert, awake, communicative. HEENT: Normocephalic, atraumatic. Sclerae are pink. Conjunctivae are clear. NECK: Supple. CARDIOVASCULAR: Regular rate and rhythm. ABDOMEN: Soft, nontender. EXTREMITIES: No edema. LABS AND IMAGING: Reviewed. ASSESSMENT AND PLAN: The patient has history of stage IV non-small cell lung cancer, currently on palliative treatment, admitted with chemo-induced pancytopenia, possibly complicated with atrial fibrillation. The patient also has refractive left lower abdominal pain. Consulted surgery for splenic cyst. He is scheduled for surgery today. He received platelet transfusion and is clinically doing better. RECOMMENDATIONS: Continue current medication. Supportive care including blood and platelet transfusion as needed. Will follow the patient closely. Job#: [id number]
[2017-03-28] MEDS: ALBUTEROL/IPRATROPIUM 3 ML NEB NEB SCH ×5 (03:10→20:15)
[2017-03-28] MEDS: DEXAMETHASONE 4 MG TAB PO SCH ×2 (05:08→17:18)
[2017-03-28] MEDS: METOPROLOL TARTRATE 25 MG TAB PO SCH ×4 (05:08→17:30)
[2017-03-28 05:43] LABS: BASOPHILS % 0.5 % (0.0-1.0); EOSINOPHILS % 0.1 % (0.0-6.0); HEMATOCRIT 24.1 % (38.2-49.6); LYMPHOCYTES # (AUTO) 0.5 (1.0-3.2); LYMPHOCYTES % 6.7 % (18.0-39.1); MEAN CORPUSCULAR HEMOGLOBIN 29.3 pg (28-32); MEAN CORPUSCULAR HGB CONC 33.2 g/dL (31-35); MEAN CORPUSCULAR VOLUME 88.3 fL (81-99); MONOCYTES # (AUTO) 0.2 (0.2-0.8); MONOCYTES % 2.5 % (4.4-11.3); NEUTROPHILS % 88.7 % (38.7-80.0); PLATELET COUNT 94 x10e3/uL (140-360); RED BLOOD COUNT 2.73 x10e6/uL (4.3-5.7); RED CELL DISTRIBUTION WIDTH 19.5 % (11.7-14.4)
[2017-03-28 06:17] LABS: ALANINE AMINOTRANSFERASE 40 IU/L (0-55); ALBUMIN 1.5 g/dL (3.5-5.0); ALBUMIN/GLOBULIN RATIO 0.4 (0.8-2.0); ALKALINE PHOSPHATASE 100 IU/L (40-150); ANION GAP 10.6 mmol/L (8-16); BLOOD UREA NITROGEN 15 mg/dL (7-26); BUN/CREATININE RATIO 25 (6-25); CALCIUM 9.7 mg/dL (8.4-10.2); CARBON DIOXIDE 26 mmol/L (22-29); CHLORIDE 106 mmol/L (98-107); CREATININE, SERUM 0.61 mg/dL (0.72-1.25); EST GLOMERULAR FILTRATION RATE > 60 ML/MIN (60-); GLUCOSE 167 mg/dL (74-118); MAGNESIUM 1.3 MG/DL (1.3-2.1); POTASSIUM 3.6 mmol/L (3.5-5.1); SODIUM 139 mmol/L (136-145)
--- NOTE | 2017-03-28 07:01 | Diagnostic Imaging Report ---
EXAMINATION: CHEST SINGLE (PORTABLE) INDICATION: Congestive heart failure. COMPARISON: 03/26/2017 FINDINGS: TUBES and LINES: Left-sided chest port is stable LUNGS: Lungs are not well inflated. There are bibasilar atelectasis. Worsening left lung opacity PLEURA: Trace of left pleural effusion HEART AND MEDIASTINUM: The cardiomediastinal silhouette is unremarkable. BONES AND SOFT TISSUES: No acute osseous lesion. Soft tissues are unremarkable. UPPER ABDOMEN: No free air under the diaphragm. Surgical clips in the left upper quadrant. IMPRESSION: Worsening airspace disease in the left hemithorax Signed by: Dr. Kwesi Baron M.D. on 03/28/2017 6:58 AM
[2017-03-28 07:14] LABS: BAND NEUTROPHILS % (MANUAL) 9 %; LYMPHOCYTES % (MANUAL) 2 % (19-48); MONOCYTES % (MANUAL) 1 % (3.4-9.0); NEUTROPHILS % (MANUAL) 87 % (40-74); NUCLEATED RED BLOOD CELLS 1; PLATELET MORPHOLOGY COMMENT FEW LARGE; RBC MORPHOLOGY COMMENT NORMAL
[2017-03-28 07:15] LABS: PLATELET ESTIMATE ADEQUATE
[2017-03-28] MEDS: BALSAM PERU/CASTOR OIL 60 GM OINT...G. TP SCH ×2 (08:18→21:37)
[2017-03-28] MEDS ORDERED: BISACODYL 10 MG SUPP PR ONE (08:30)
[2017-03-28] MEDS: LACTULOSE SYRUP 20 GM/30 ML UDC PO SCH (09:16)
[2017-03-28] MEDS: AMIODARONE HCL 200 MG TAB PO SCH ×2 (09:16→17:18)
[2017-03-28] MEDS: ONDANSETRON HCL 4 MG ORAL DISINTEGRATING TAB PO SCH ×3 (09:16→21:36)
[2017-03-28] MEDS: HYDROCODONE/APAP 10MG-325MG TAB PO PRN (09:16)
[2017-03-28] MEDS: DIGOXIN 0.125 MG TAB PO SCH (09:16)
[2017-03-28] MEDS: LISINOPRIL 20 MG TAB PO SCH (09:16)
[2017-03-28] MEDS: GABAPENTIN 300 MG CAP PO SCH (09:16)
[2017-03-28] MEDS: MAALOX/LIDOCAINE/BENADRYL 120 ML BTL PO SCH ×2 (09:16→21:36)
--- NOTE | 2017-03-28 10:05 | Progress Note ---
DATE: March 27, 2017 CARDIOLOGY PROGRESS NOTE SUBJECTIVE: Feels somewhat better after surgery. P.R.N. analgesics being provided. Accompanied by family today. TELEMETRY: Sinus rhythm. OBJECTIVE VITAL SIGNS: Temperature 98.4, heart rate 74, respiratory rate 20, blood pressure 140/89, O2 sat 100% on nasal cannula. GENERAL: No acute distress. CHEST: Clear to auscultation. CARDIOVASCULAR: Regular rate and rhythm. ABDOMEN: Mildly distended. EXTREMITIES: Trace edema. CARDIOVASCULAR MEDICATIONS 1. Metoprolol tartrate 25 mg q.6 h. 2. Amiodarone 200 mg b.i.d. 3. Digoxin 0.125 mg daily. 4. Lisinopril 40 mg daily. 5. P.R.N. metoprolol tartrate 5 mg q.6 h. IV. STUDIES: Reviewed. White blood cells 5.1, hemoglobin 8.5, stable. Platelets 122. Sodium 140, potassium 3.3, chloride 106, bicarbonate 26, BUN 20, creatinine 0.6, glucose 147, calcium 9.7. ASSESSMENT 1. Paroxysmal atrial fibrillation, currently in sinus rhythm. 2. Streptococcal pneumonia and bacteremia. 3. Moderate left ventricular hypertrophy. 4. Chronic systolic heart failure. 5. Pneumonia. 6. Pancytopenia. 7. Immune-suppressed state. 8. Squamous cell carcinoma of the lung, stage IV, status post recent chemotherapy. RECOMMENDATIONS: Status post recent splenectomy. Continue current cardiovascular medications and pain control as needed. Will follow closely. Job#: [id number]
--- NOTE | 2017-03-28 10:06 | Operative Report ---
DATE OF PROCEDURE: March 26, 2017 PROCEDURE: Fiberoptic flexible bronchoscopy. INDICATIONS: Shortness of breath, lung cancer, inspection. CONSENT: Informed from . ESTIMATED BLOOD LOSS: Less than 1 mL. COMPLICATIONS: None. ANESTHESIA: Per anesthesiology. The patient was intubated after splenectomy with 8.0 endotracheal tube. Via the endotracheal tube, the fiberoptic bronchoscope was inserted into the airways. The airways were inspected. Main airways were free of debris and any abnormal lesions until we got to lobar segments. In the left upper lobe, tumor was seen infiltrating the left upper lobe, but there was no proximal left upper lobe outlet stenosis. However, at the lingula branch as well as the left upper lobe branch we could not see beyond with the camera due to at least 60% stenoses at these 2 levels. After trying to maneuver the scope into these areas, it was noted that the patient bled very easily and, therefore, no further advancement of the scope was done at this time. It was noted that these airways were partially open during inspiratory phase. Attention was turned into the left lower lobe segment where there was about a 50% narrowing of the left lower lobe. The patient had no interior infiltration of tumor at this level, but only extrinsic compression. Due to excess bleedability, we removed the scope at this time given there were no high yield lesions to address. IMPRESSION: Left lower lobe 50% extrinsic compression, irregular and distal left upper lobe segmental obstructions. Due to significant bleedability and due to the semi distal nature of these obstructions, no high yield targets for intervention were deemed present. RECOMMENDATIONS: Continue multidisciplinary care including chemotherapy. If add on therapy is needed, consideration for wide field radiation therapy, if the patient gets strong consideration can be for a pulmonary interventional approach noting that the patient is expected to go backwards temporarily before he goes forward with any pulmonary intervention. Therefore, he would really need to gain a lot of strength. Job#: [id number]
--- NOTE | 2017-03-28 14:55 | Progress Note ---
DATE: March 28, 2017 The patient was seen and examined today. The patient appeared better. Clinical condition is improving. He tolerated surgery very well. He does have mild anemia. Hemoglobin is 8 with no evidence of any bleeding. PHYSICAL EXAMINATION GENERAL: Alert, awake, communicative. HEENT: Normocephalic, atraumatic. Sclerae are pink. Conjunctivae are clear. NECK: Supple. CHEST: Clear to auscultation. ABDOMEN: Soft. EXTREMITIES: No edema. LABS AND IMAGING: Reviewed. ASSESSMENT AND PLAN: The patient has history of multiple medical conditions. I am following for stage-IV lung cancer. The patient is clinically doing better status post splenectomy. He tolerated the procedure very well. He has anemia but pancytopenia is improving. CURRENT RECOMMENDATIONS: Supportive care. Discussion about further continuation of lung cancer management. Current recommendation is radiation treatment. Will continue to manage. Will follow the patient. Job#: [id number]
--- NOTE | 2017-03-28 14:59 | Progress Note ---
DATE: March 27, 2017 The patient was seen and examined today. The patient appeared comfortable. He had his surgery yesterday. Tolerated it very well. Current count is stable. PHYSICAL EXAMINATION GENERAL: Alert, awake, communicative. HEENT: Normocephalic, atraumatic. Sclerae are pink. Conjunctivae are clear. NECK: Supple. CHEST: Decreased breath sounds at the bases. ABDOMEN: Soft. EXTREMITIES: No edema. LABS AND IMAGING: Reviewed. ASSESSMENT AND PLAN: The patient has history of lung cancer, large splenic cyst, pancytopenia, atrial fibrillation and anemia. The patient is status post splenectomy. Tolerated it very well. Clinically doing better. He also had bronchoscopy that showed persistent obstruction. RECOMMENDATIONS: Palliative radiation as an outpatient. Comfort care. Supportive care with transfusion. Will monitor the patient closely. Job#: [id number]
[2017-03-28] MEDS: LEVOFLOXACIN 750MG/D5W 150ML 150 ML IV SCH (16:00)
[2017-03-28] MEDS: DOXYCYCLINE HYCLATE TABLET 100 MG TAB PO SCH (17:18)
--- NOTE | 2017-03-28 19:19 | Progress Note ---
DATE: March 27, 2017 PULMONARY MEDICINE/CRITICAL CARE MEDICINE PROGRESS NOTE SUBJECTIVE: was seen and examined at bedside. He is so much better today. He is not confused. He still has some pain that is difficult to localize. Patient remains in the ICU. He is overall much better, much less pain. He is totally oriented times 3. He is tolerating clear liquid diet. He was escalated to pureed diet, 0.9 liters in and 1.4 liters out. Family at bedside. Some electrolyte disturbance is noted. REVIEW OF SYSTEMS: No headaches, no rash. OBJECTIVE VITAL SIGNS: Afebrile. Vital signs noted per electronic record. GENERAL: Still looks chronic, but definitely a little bit stronger. Overall weak and he is in bed. HEENT: Normocephalic, atraumatic. NECK: Supple. Throat midline. LUNGS: Bilateral air entry, decreased breath sounds especially on the left side. CARDIOVASCULAR: S1 and S2. No murmurs, rubs, or gallops. ABDOMEN: Soft and nontender. EXTREMITIES: No clubbing, no cyanosis. There is trace edema. INTEGUMENT: No rash and no purpura. LABORATORY DATA: Potassium 2.3, magnesium 1.1, albumin 1.6. White count 5, hematocrit 35, and platelets 122. Chest x-ray, slightly increased left-sided infiltrate. IMPRESSION AND PLAN 1. Postoperative state, status post laparoscopic splenectomy. 2. Splenic metastasis, cystoid enlargement with refractory pain syndrome. 3. Dysphagia, probably improved significantly. 4. Weakness. 5. Lung cancer, stage IV. Continue close followup. Escalate diet as tolerated. Discontinue the A-line. We will see if the patient can get the Wright catheter removed tomorrow. We will ask if the patient can leave the ICU. Continue pain management, but it is much better and he is not on the fentanyl patch anymore. Follow along closely. Job#: [id number] DAVID
[2017-03-28] MEDS: SIMVASTATIN 20 MG TAB PO SCH (21:36)
[2017-03-29 00:03] VITALS: BP 142/73
[2017-03-29] MEDS: ALBUTEROL/IPRATROPIUM 3 ML NEB NEB SCH ×7 (00:15→19:45)
[2017-03-29] MEDS: METOPROLOL TARTRATE 25 MG TAB PO SCH ×2 (00:17→05:26)
[2017-03-29] MEDS: NYSTATIN SUSPENSION 5 ML UDC PO SCH ×4 (00:17→17:18)
[2017-03-29] MEDS: IPRATROPIUM BROMIDE 0.02% 2.5 ML NEB NEB SCH ×4 (01:00→19:00)
--- NOTE | 2017-03-29 01:29 | Progress Note ---
DATE: March 28, 2017 PULMONARY MEDICINE PROGRESS NOTE SUBJECTIVE: was seen and examined at bedside. He continues to have steady progress. He was noted with chest x-ray slightly worse with atelectasis in the left lower lobe. In 4.3 L and 2.6 L out. Saturation 100% on room air FIO2. He is totally oriented. REVIEW OF SYSTEMS: No bleeding. No rash. OBJECTIVE VITALS: Afebrile. Vital signs noted per electronic record. GENERAL: In no acute distress. Alert and calm. Still weak. HEENT: Normocephalic and atraumatic. NECK: Supple. Throat midline. LUNGS: Bilateral air entry. Decreased breath sounds at the bases, especially the left side. CARDIOVASCULAR: S1 and S2. No murmurs, rubs or gallops. ABDOMEN: Soft and nontender. EXTREMITIES: No clubbing. No cyanosis. There is 1+ edema to the legs. INTEGUMENT: No rash. No purpura. LABS: Platelets 94,000, white count 7.8. Potassium 3.6, creatinine 0.6. Albumin is 1.5. IMPRESSION AND PLAN 1. Acute postoperative respiratory insufficiency, expected: Extubated. 2. Lung cancer, metastatic. 3. Corpectomy pain apparently due to known splenic enlargement. 4. Severe protein calorie malnutrition. 5. Atelectasis partly due to lung cancer encroachment on the larger airways. Continue current treatment. Ambulate the patient. Check the functional status. Patient elected to resume chemotherapy and radiation as needed. The radiation is first time as he is strong. Multisensory area with tumors encroaching on the lobar airways. Diuresis times 1 dose. Give some potassium. Will follow along closely. Mobilize him with PT. Job#: [id number] MN
[2017-03-29 04:41] VITALS: BP 152/69
[2017-03-29] MEDS: DEXAMETHASONE 4 MG TAB PO SCH ×2 (05:26→17:18)
[2017-03-29 06:00] LABS: BASOPHILS % 0.3 % (0.0-1.0); LYMPHOCYTES # (AUTO) 0.6 (1.0-3.2); LYMPHOCYTES % 6.8 % (18.0-39.1); MEAN CORPUSCULAR HEMOGLOBIN 29.2 pg (28-32); MEAN CORPUSCULAR HGB CONC 33.6 g/dL (31-35); MEAN CORPUSCULAR VOLUME 86.7 fL (81-99); MONOCYTES # (AUTO) 0.3 (0.2-0.8); MONOCYTES % 2.8 % (4.4-11.3); NEUTROPHILS % 89.2 % (38.7-80.0); PLATELET COUNT 106 x10e3/uL (140-360); RED BLOOD COUNT 2.64 x10e6/uL (4.3-5.7); RED CELL DISTRIBUTION WIDTH 18.9 % (11.7-14.4)
[2017-03-29 06:06] LABS: HEMATOCRIT 22.9 % (38.2-49.6); HEMOGLOBIN 7.7 g/dL (14.0-18.0)
[2017-03-29 06:17] LABS: ANION GAP 8.5 mmol/L (8-16); BLOOD UREA NITROGEN 15 mg/dL (7-26); BUN/CREATININE RATIO 26 (6-25); CALCIUM 9.6 mg/dL (8.4-10.2); CARBON DIOXIDE 29 mmol/L (22-29); CHLORIDE 103 mmol/L (98-107); CREATININE, SERUM 0.57 mg/dL (0.72-1.25); EST GLOMERULAR FILTRATION RATE > 60 ML/MIN (60-); GLUCOSE 118 mg/dL (74-118); MAGNESIUM 1.2 MG/DL (1.3-2.1); POTASSIUM 3.5 mmol/L (3.5-5.1); SODIUM 137 mmol/L (136-145)
[2017-03-29 07:20] VITALS: BP 134/70
[2017-03-29 08:00] LABS: BAND NEUTROPHILS % (MANUAL) 5 %; LYMPHOCYTES % (MANUAL) 5 % (19-48); MONOCYTES % (MANUAL) 1 % (3.4-9.0); NEUTROPHILS % (MANUAL) 89 % (40-74); NUCLEATED RED BLOOD CELLS 3
[2017-03-29 08:01] LABS: ANISOCYTOSIS SLIGHT; MICROCYTOSIS SLIGHT; PLATELET ESTIMATE SLIGHTLY DECREASED; PLATELET MORPHOLOGY COMMENT FEW LARGE; RBC MORPHOLOGY COMMENT ABNORMAL; SMUDGE CELLS FEW; TOXIC GRANULATION SLIGHT
[2017-03-29] MEDS: BALSAM PERU/CASTOR OIL 60 GM OINT...G. TP SCH ×2 (08:27→21:41)
[2017-03-29] MEDS: DIGOXIN 0.125 MG TAB PO SCH (08:29)
[2017-03-29] MEDS ORDERED: METOPROLOL SUCCINATE 50 MG TAB XL PO ONE (09:00)
[2017-03-29] MEDS: DOXYCYCLINE HYCLATE TABLET 100 MG TAB PO SCH ×2 (09:14→17:18)
[2017-03-29] MEDS: POTASSIUM CHLORIDE 20 MEQ TAB CR PO SCH (09:14)
[2017-03-29] MEDS: LISINOPRIL 20 MG TAB PO SCH (09:14)
[2017-03-29] MEDS: LACTULOSE SYRUP 20 GM/30 ML UDC PO SCH (09:14)
[2017-03-29] MEDS: FUROSEMIDE INJ 10 MG/ML 4 ML VIAL IV SCH (09:14)
[2017-03-29] MEDS: MAALOX/LIDOCAINE/BENADRYL 120 ML BTL PO SCH ×2 (09:14→21:41)
[2017-03-29] MEDS: AMIODARONE HCL 200 MG TAB PO SCH ×2 (09:14→17:18)
[2017-03-29] MEDS: GABAPENTIN 300 MG CAP PO SCH (09:14)
[2017-03-29] MEDS: ONDANSETRON HCL 4 MG ORAL DISINTEGRATING TAB PO SCH ×3 (09:14→21:41)
--- NOTE | 2017-03-29 10:35 | Progress Note ---
DATE: March 28, 2017 PROGRESS NOTE SUBJECTIVE: The patient denies chest pain or shortness of breath. OBJECTIVE VITAL SIGNS: Temperature 97.6 degrees, pulse 87, respiratory rate 14, blood pressure 146/81, oxygen saturation 100% on room air. GENERAL: Cachectic and in no acute distress. LUNGS: Decreased breath sounds on the left with crackles, otherwise clear to auscultation on the right. CARDIOVASCULAR: Normal rate. Regular rhythm. No murmur. Normal S1 and S2. ABDOMEN: Soft and nontender. EXTREMITIES: No edema. CARDIAC MEDICATIONS 1. Metoprolol tartrate 25 mg p.o. q.6 h. 2. Amiodarone 200 mg p.o. b.i.d. 3. Digoxin 0.125 mg p.o. q.a.m. 4. Simvastatin 20 mg p.o. at bedtime. 4. Lisinopril 40 mg p.o. daily. LABS: WBC 7.8, hemoglobin 8, hematocrit 24.1, platelets 94,000, sodium 139, potassium 3.6, chloride 106, CO2 of 26, BUN 15, creatinine 0.61. TELEMETRY: Normal sinus rhythm. IMPRESSION 1. Paroxysmal atrial fibrillation, currently normal sinus rhythm. 2. Streptococcus Pneumoniae bacteremia. 3. Pneumonia. 4. Squamous cell carcinoma of the lung, stage IV, status post recent chemotherapy. 5. Immunosuppressed state. 6. Pancytopenia. 7. Moderate left ventricular systolic dysfunction on echocardiogram. RECOMMENDATIONS: Continue current cardiac medications. The patient will need to be transitioned to metoprolol succinate 100 mg p.o. daily for his chronic systolic heart failure. Given his prognosis, plan for medical management of his systolic heart failure and presumed CAD given coronary calcifications on CT chest. Please continue to monitor the patient on telemetry. Thank you for this consult. We will continue to follow. Job#: [id number]
[2017-03-29 11:16] VITALS: BP 134/70
[2017-03-29 12:00] VITALS: BP 145/71
[2017-03-29] MEDS ORDERED: MAGNESIUM OXIDE 400 MG TAB PO ONE (12:00)
--- NOTE | 2017-03-29 12:00 | Progress Note ---
DATE: March 29, 2017 CARDIOLOGY PROGRESS NOTE SUBJECTIVE: The patient denies chest pain or shortness of breath. He was transferred out of the ICU to IMU yesterday. OBJECTIVE VITAL SIGNS: Temperature 98.9 degrees, pulse 57, respiratory rate 20, blood pressure 134/70, oxygen saturation 98% on room air. GENERAL: Cachectic man, in no acute distress. LUNGS: Decreased breath sounds on the left with crackles, otherwise clear to auscultation on the right. CARDIOVASCULAR: Normal rate. Regular rhythm. No murmur. Normal S1 and S2. ABDOMEN: Soft and nontender. EXTREMITIES: No edema. CARDIAC MEDICATIONS 1. Furosemide 40 mg IV daily. 2. Amiodarone 200 mg p.o. b.i.d. 3. Lisinopril 40 mg p.o. daily. 4. Metoprolol tartrate 25 mg p.o. q.6 h. 5. Simvastatin 20 mg p.o. at bedtime. 4. Digoxin 0.125 mg p.o. q.a.m. LABS: WBC 9.01, hemoglobin 7.7, hematocrit 22.9, platelets 106,000. Sodium 137, potassium 3.5, chloride 103, CO2 of 29, BUN 15, creatinine 0.57. TELEMETRY: Normal sinus rhythm. IMPRESSION 1. Paroxysmal atrial fibrillation, currently in normal sinus rhythm. 2. Streptococcus pneumoniae bacteremia. 3. Pneumonia. 4. Squamous cell carcinoma of the lung, stage IV, status post recent chemotherapy. 5. Immunosuppressed state. 6. Pancytopenia. 7. Moderate left ventricular systolic dysfunction on echocardiogram. RECOMMENDATIONS: Continue current cardiac medications. Plan to transition to metoprolol succinate 100 mg p.o. daily for chronic systolic heart failure. Given prognosis, plan for medical management of chronic systolic heart failure and presumed CAD, given coronary calcifications on CT chest. Continue to monitor the patient on telemetry. He is currently not on anticoagulation due to pancytopenia with chemotherapy. Thank you for this consult. We will continue to follow. Job#: [id number]
[2017-03-29] MEDS ORDERED: POTASSIUM CHLORIDE 20 MEQ TAB CR PO ONE (12:15)
[2017-03-29] MEDS: METOPROLOL SUCCINATE 50 MG TAB XL PO SCH (12:20)
--- NOTE | 2017-03-29 13:04 | Progress Note ---
DATE: March 29, 2017 PULMONARY MEDICINE PROGRESS NOTE SUBJECTIVE: was seen and examined at bedside. He continues to slowly get better. However, on standing up, he was 2-person max assist. Patient with 100% oxygen saturation on room air. He is much less confused, only very mild confusion is remnant. Had 4.3 L in and 2.6 L out. Patient is eating without issue. Swelling is much better after Lasix. REVIEW OF SYSTEMS: No headache. No rash. OBJECTIVE VITALS: Afebrile. Vital signs noted per electronic record. GENERAL: In no acute distress. Alert and calm. HEENT: Normocephalic and atraumatic. NECK: Supple. Throat midline. LUNGS: Bilateral air entry. A few rhonchi. CARDIOVASCULAR: S1 and S2. No murmurs, rubs or gallops. ABDOMEN: Soft and nontender. EXTREMITIES: No clubbing. No cyanosis. There is still 1+ edema right now. INTEGUMENT: No rash. No purpura. LABS: 3.5 potassium, 0.6 creatinine, 9 white count, 23 hematocrit, magnesium 1.2. IMPRESSION AND PLAN 1. Postoperative state, status post splenectomy. 2. Lung cancer, metastatic. 3. Refractory pain now better after splenectomy. 4. Borderline obstructive left lung lesions at the lobar level. 5. Electrolyte abnormality. 6. Atrial fibrillation on medication management. We will continue to mobilize the patient. I have discussed with the regarding disposition. We do not want to send him anywhere terminal system operator due to his short prognosis expected. However, he is still weak, and they may or may not want to take him home. Will get inpatient rehabilitation consultation. Correct electrolytes and low-dose Lasix. Job#: [id number]
--- NOTE | 2017-03-29 14:46 | Consultation ---
DATE OF CONSULTATION: March 29, 2017 REASONS FOR CONSULTATION 1. Debility secondary to metastatic lung CA. 2. Patient with bacteremia. 3. AFib with RVR. HISTORY: Mainly from medical records and chart from Dr. Baird. The patient is an unfortunate 71-year-old male with history of squamous cell carcinoma, stage IV, of the lungs, hypertension and hyperlipidemia. He complained of lethargy. He was found to have pneumonia and patchy infiltrates on CT. He was admitted to the hospital. He has had a significant decline in function. He states he has been in the bed for a while, and he has not been able to really get around much. Due to his debilitation, I am being asked to evaluate for rehab needs. PAST MEDICAL HISTORY: Squamous cell carcinoma of the lung, poorly differentiated, stage IV; hypertension; hyperlipidemia. SURGERIES: Port placement. ALLERGIES: PLEASE SEE ELECTRONIC MEDICAL RECORD. SOCIAL HISTORY: He used to smoke 2 packs of cigarettes a day. Drinks alcohol occasionally. Lives with his in a 1-story home. He states he was ambulatory in the past, but cannot really remember the last time he got around, but he has been very weak secondary to his recent infection. LABS: White cell count 9, hemoglobin 7.7, hematocrit 22.9, platelets 106. Sodium 137, potassium 3.5, BUN 15, creatinine 0.57. Chest x-ray from yesterday showed worsening air space disease in the left hemithorax. Review of the therapy note shows the patient is max assist of 2 with transfers. PHYSICAL EXAMINATION GENERAL: The patient is awake and alert. He has some speech difficulties being understood. He is able to follow commands. He is oriented. EYES: Gaze is conjugate. ORAL: Tongue is midline. NECK: Supple. HEART: Regular. LUNGS: Air entry. ABDOMEN: Nontender and nondistended. EXTREMITIES: Functional range of motion of the upper extremities, but he is really weak in the lower extremities. SENSORY: Denies any new onset of numbness or tingling of the hands, feet or face. MANUAL MUSCLE TESTIN+/5 to 4-/5 strength in the upper extremities, 3+/5 strength in the lower extremities. Again, max assist of 2 with transfers. IMPRESSION 1. Squamous cell carcinoma of the lungs, poorly differentiated, stage IV. 2. Atrial fibrillation with rapid ventricular response. 3. Anemia. 4. Pneumonia. 5. Felty syndrome. 6. Hypertension. PLAN: At this point, his prognosis is extremely poor. I discussed with Dr. Baird. His lifespan is not expected to be that long. However, the question remains should he come to rehab for a short stay, improve and then go home or just go home. At this time, the patient is leaning towards going home. At this point, I really cannot disagree with him. We will see what we can do. Thank you, once again, for allowing me to participate in the care of this pleasant but unfortunate patient. YU ORTIZ DO Job#: [id number]
[2017-03-29] MEDS ORDERED: SODIUM CHLORIDE 0.9% 250ML 250 ML ONE (15:08)
[2017-03-29 20:00] VITALS: BP 142/63
[2017-03-29] MEDS: SIMVASTATIN 20 MG TAB PO SCH (21:41)
[2017-03-30] MEDS: NYSTATIN SUSPENSION 5 ML UDC PO SCH ×2 (00:30→06:42)
[2017-03-30] MEDS: IPRATROPIUM BROMIDE 0.02% 2.5 ML NEB NEB SCH ×3 (01:00→13:00)
--- NOTE | 2017-03-30 01:52 | Progress Note ---
DATE: March 29, 2017 Patient was seen and examined today. Patient appeared better. Clinical condition is improving. Currently, hemoglobin is still low. PHYSICAL EXAMINATION GENERAL: Alert, awake and communicative. HEENT: Normocephalic and atraumatic. Sclerae pink. Conjunctivae clear. NECK: Supple. CHEST: Decreased breath sounds at the bases. ABDOMEN: Soft. EXTREMITIES: No edema. Labs and imaging reviewed. ASSESSMENT AND PLAN: Patient with a history of lung cancer with advanced disease, status post splenectomy admitted with pancytopenia. Patient has persistent anemia. Recommendation is blood transfusion. Patient will follow as an outpatient for pharmacology care. Continue current treatment. Will monitor the patient closely. Job#: [id number] RODRI
[2017-03-30] MEDS: ALBUTEROL/IPRATROPIUM 3 ML NEB NEB SCH ×3 (03:00→11:23)
[2017-03-30 04:00] VITALS: BP 140/61
[2017-03-30] MEDS: DEXAMETHASONE 4 MG TAB PO SCH (06:45)
[2017-03-30 07:27] VITALS: BP 142/94
[2017-03-30] MEDS: FUROSEMIDE INJ 10 MG/ML 4 ML VIAL IV SCH (08:57)
[2017-03-30] MEDS: LACTULOSE SYRUP 20 GM/30 ML UDC PO SCH (08:58)
[2017-03-30] MEDS: POTASSIUM CHLORIDE 20 MEQ TAB CR PO SCH (08:59)
[2017-03-30] MEDS: AMIODARONE HCL 200 MG TAB PO SCH (08:59)
[2017-03-30] MEDS: GABAPENTIN 300 MG CAP PO SCH (08:59)
[2017-03-30] MEDS: DOXYCYCLINE HYCLATE TABLET 100 MG TAB PO SCH (08:59)
[2017-03-30] MEDS: ONDANSETRON HCL 4 MG ORAL DISINTEGRATING TAB PO SCH ×2 (09:00→16:37)
[2017-03-30] MEDS: MAALOX/LIDOCAINE/BENADRYL 120 ML BTL PO SCH (09:24)
[2017-03-30] MEDS: BALSAM PERU/CASTOR OIL 60 GM OINT...G. TP SCH (09:36)
[2017-03-30] MEDS: DIGOXIN 0.125 MG TAB PO SCH (09:36)
[2017-03-30] MEDS: METOPROLOL SUCCINATE 50 MG TAB XL PO SCH (09:36)
[2017-03-30] MEDS: LISINOPRIL 20 MG TAB PO SCH (09:36)
[2017-03-30] MEDS ORDERED: BISACODYL 10 MG SUPP PR ONE (11:45)
[2017-03-30] MEDS ORDERED: DEXAMETHASONE4 MG PO (12:25)
[2017-03-30] MEDS ORDERED: IPRATROPIU0.2 MG/1 M NEB (12:27)
[2017-03-30] MEDS ORDERED: AMIODARONE HCL200 MG PO (12:27)
[2017-03-30] MEDS ORDERED: TOPROL XL50 MG PO (12:27)
[2017-03-30] MEDS ORDERED: DIGOXIN125 MCG PO (12:27)
[2017-03-30 14:18] VITALS: BP 123/70
--- NOTE | 2017-03-30 14:27 | Progress Note ---
DATE: NO DICTATION, LENGTH 4 SECONDS. Job#: [id number] MH
--- NOTE | 2017-03-30 16:18 | Discharge Summary ---
PRIMARY DIAGNOSIS: Refractory pain, suspected due to massive splenomegaly. DISCHARGE DIAGNOSIS: Refractory pain due to massive splenomegaly. SECONDARY DIAGNOSES: Include 1. Stage IV lung cancer. 2. Complicating atrial fibrillation with rapid ventricular rate. 3. Hypokalemia. 4. Anemia. 5. Weakness. 6. Hypertension/coronary artery disease. 7. 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 HOSPITAL FINDINGS: was seen and examined at bedside over multiple days. He had refractory pain. He was having altered mental status where he could not stay awake. CAT scan was done of the abdomen showing a massively enlarging spleen compared to previous. This was found to be the etiology clinically. He went for a surgical resection of the spleen and after the chemotherapy effect washed out and he was safely optimized for surgery, he had splenectomy with excellent response in his ability to do things. He remained 2-person maximum assist after the surgery, so it was elected to [facility] facility. Prior to surgery, he did have atrial fibrillation which was hard to correct. Of note, he may need some x-ray therapy to his lobar airways for the encroaching obstructions at the lobar levels. It was felt that direct interventional debridement was felt less beneficial of option at this time due to the fact that he was likely going to bleed a lot and go backwards before he goes forward; however, x-rays will need to be followed in future . DISPOSITION: [facility] facility for short-term rehab, then to continue his chemotherapy and radiation. FOLLOWUP: Follow up with Dr. Kowalski, Dr. Baird, and Dr. Serrtao. MEDICATIONS AT DISCHARGE: Please see list. DIET AT DISCHARGE: Pureed or soft mechanical, otherwise a weight gain diet. ACTIVITY AT DISCHARGE: As tolerated, fall precautions. Greater than 30 minutes in discharge planning today and coordination. NINA BAIRD MD Job#: [id number] SINA
[2017-03-30 16:20] VITALS: BP 122/81
--- NOTE | 2017-03-30 17:47 | Progress Note ---
DATE: March 30, 2017 The patient was seen and examined today. He appeared comfortable. No worsening events noted. Clinically doing better. OBJECTIVE GENERAL: Alert, awake, communicative. HEENT: Normocephalic, atraumatic. Sclerae pink. Conjunctivae clear. NECK: Supple. CHEST: Clear to auscultation. CARDIOVASCULAR: Regular rate and rhythm. EXTREMITIES: No edema. Labs and imaging reviewed. ASSESSMENT AND PLAN: 1. The patient with improved medical condition. Stage IV lung cancer. The patient had progression of the disease with chemo. The patient admitted with pancytopenia, clinically doing better. Also required splenectomy. Current recommendations are to continue current care. Follow up as an outpatient for further oncological care including radiation treatment. 2. Pancytopenia, improved. Recommendation of close observation. 3. Anemia. The patient received blood transfusion. Recommendations, close observation. 4. Will follow the patient closely. Job#: [id number]
--- NOTE | 2017-03-30 18:47 | Progress Note ---
DATE: March 30, 2017 CARDIOLOGY PROGRESS NOTE SUBJECTIVE: The patient denies chest pain or shortness of breath. He reports he will be going to rehab. OBJECTIVE VITAL SIGNS: Temperature 99.1 degrees, pulse 81, respiratory rate 20, blood pressure 123/70, oxygen saturation 95% on 2 liters nasal cannula. GENERAL: Cachectic man, in no acute distress. LUNGS: Decreased breath sounds on the left with crackles, otherwise clear to auscultation on the right. CARDIOVASCULAR: Normal rate. Regular rhythm. No murmur. Normal S1 and S2. ABDOMEN: Soft and nontender. EXTREMITIES: No edema. CARDIAC MEDICATIONS 1. Metoprolol succinate 100 mg p.o. daily. 2. Digoxin 0.125 mg p.o. q.a.m. 3. Lisinopril 40 mg p.o. daily 4. Amiodarone 200 mg p.o. b.i.d. 5. Furosemide 40 mg IV daily. 6. Simvastatin 20 mg p.o. nightly. LABS: None today. TELEMETRY: Normal sinus rhythm. IMPRESSION 1. Paroxysmal atrial fibrillation, currently in normal sinus rhythm. 2. Streptococcus pneumoniae bacteremia. 3. Pneumonia. 4. Squamous cell carcinoma of the lung, stage IV, status post recent chemotherapy. 5. Immunosuppressed state. 6. Pancytopenia. 7. Moderate left ventricular systolic dysfunction on echocardiogram. RECOMMENDATIONS: Continue current cardiac medications. Given the patient's comorbid conditions, specifically his stage IV lung cancer, recommend medical management for the patient's chronic systolic heart failure and presumed coronary artery disease, given coronary classifications on CT chest. This was discussed with the patient's who agreed given she expressed previously that they wished to have good quality of life for the patient and the patient is, at this time, asymptomatic from a cardiac standpoint. No anticoagulation due to pancytopenia and need for blood transfusions. Will reassess as an outpatient. Thank you for this consult. We will continue to follow. Job#: [id number]
== END 2017-03-30 16:39 | DRG 356 ==
LOC: ER 09:24 → ERHOLD 12:55 → MED/SURG2 14:39 → ICU 03-23 13:19 → IMCU 03-26 01:30 → ICU 03-26 13:23 → IMCU 03-28 16:08
PROVIDERS: ADMIT Internal Medicine Critical Care Medicine; ATTEND Internal Medicine Critical Care Medicine
PROC: 5A1945Z Respiratory Ventilation, 24-96 Consecutive Hours (ICD-10-PCS; 2017-03-26)
PROC: 0BJ08ZZ Inspection of Tracheobronchial Tree, Via Natural or Artificial Opening Endoscopic (ICD-10-PCS; principal; 2017-03-26 10:37)
PROC: 07TP4ZZ Resection of Spleen, Percutaneous Endoscopic Approach (ICD-10-PCS; 2017-03-26 10:37)
DX: C78.89 Secondary malignant neoplasm of other digestive organs (principal); J95.821 Acute postprocedural respiratory failure; E43 Unspecified severe protein-calorie malnutrition; D61.818 Other pancytopenia; J13 Pneumonia due to Streptococcus pneumoniae; G93.40 Encephalopathy, unspecified; D70.8 Other neutropenia; D70.1 Agranulocytosis secondary to cancer chemotherapy; E88.09 Other disorders of plasma-protein metabolism, not elsewhere classified; E87.8 Other disorders of electrolyte and fluid balance, not elsewhere classified; C34.90 Malignant neoplasm of unspecified part of unspecified bronchus or lung; I50.22 Chronic systolic (congestive) heart failure; C34.12 Malignant neoplasm of upper lobe, left bronchus or lung; C34.32 Malignant neoplasm of lower lobe, left bronchus or lung; R78.81 Bacteremia; M05.00 Felty's syndrome, unspecified site; F32.9 Major depressive disorder, single episode, unspecified; Z87.891 Personal history of nicotine dependence; D72.819 Decreased white blood cell count, unspecified; E83.52 Hypercalcemia; I10 Essential (primary) hypertension; I48.0 Paroxysmal atrial fibrillation; I25.10 Atherosclerotic heart disease of native coronary artery without angina pectoris; I11.0 Hypertensive heart disease with heart failure; D75.89 Other specified diseases of blood and blood-forming organs; R00.0 Tachycardia, unspecified; R13.10 Dysphagia, unspecified; T45.1X5A Adverse effect of antineoplastic and immunosuppressive drugs, initial encounter; Y92.89 Other specified places as the place of occurrence of the external cause; B95.3 Streptococcus pneumoniae as the cause of diseases classified elsewhere
CPT/HCPCS: 36415; 36430; 71010; 71045; 74230; 76604; 80048; 80053; 81001; 82550; 82553; 82948; 83605; 83735; 83930; 84100; 84484; 85025; 85610; 85730; 86850; 86900; 86920; 87040; 87071; 87086; 87186; 87205; 87400; 88307; 88309; 93005; 93306; 94640; 96360; 96361; 97139; 99285; J1100; J1160; J1442; J1630; J1940; J1956; J2001; J2405; J3370; J7030; J7050; J7120; P9016; P9034